=== PATIENT | male | born 1940 | race Caucasian/White ===

== ENCOUNTER → 2016-05-09 | Outpatient (CLI) | payer MEDICARE, OTHER ==
[~2016-05-09] MED LIST: AGM875T PO; ASCO-262 PO; ASP325T PO; CEFD300C PO; CEPH500C PO; CYCL10TA9 PO; CYCL5TAB PO; DIAZ10TA3 PO; DIAZ5TAB3 PO; GABA-488 PO; GBPN100C PO; GLIM4TAB PO; HYDR-2890 PO; HYDR-3812 PO; HYDR1TAB PO; INSASP10V SQ; INSU100I10 SQ; INSU100V6 SQ; LISI10TA PO; MELO-195 PO; NYST1000 PO; SIMV10TA3 PO; ZLP10T PO; ZOLP5TAB7 PO; [UNRECOGNIZED DRUG - OTHER]
--- OUTSIDE RECORDS SUMMARY | 2016-05-09 15:01 | XMS REPORT | Continuity of Care Document ---
Author Author [facility] Organization [facility] Address Unknown Phone Unavailable Care Team Providers Care Data Programmer Name Role Phone FABI CARRION MD PCP Insurance Providers Payer Name Policy Number Subscriber Name Relationship [employer] Medicare [id number] Issa Olivarez 18 Self / Same As Patient [employer] [id number] Issa Olivarez 18 Self / Same As Patient Advance Directives Directive Response Recorded Date/Time Advance Directives No 01/13/16 10:00am Health Care Power of Pin Puller No 01/13/16 10:00am Organ Donor No 01/13/16 10:00am Resuscitation Status Full Code 01/13/16 10:00am Problems Active Problems Medical Problem Onset Date Status Upper respiratory infection Unknown Acute Medications Current Home Medications Medication Dose Units Route Directions Days/Qty Instructions Start Date Meloxicam (Mobic) 15 Mg 15 Mg Oral Daily 07/06/12 Glimepiride 4 Mg 4 Mg Oral Daily 07/06/12 Lisinopril 10 Mg 10 Mg Oral Daily 08/27/12 Diazepam 10 Mg 10 Mg Oral Twice A Day 01/11/16 Gabapentin 300 Mg 300 Mg Oral Three Times A Day 01/11/16 Hydrocodone/Acetaminophen 1 Each 1 Each Oral Four Times Daily Simvastatin 10 Mg 10 Mg Oral Daily 01/11/16 Cyclobenzaprine Hcl 5 Mg 5 Mg Oral Three Times A Day 01/11/16 Zolpidem Tartrate 5 Mg 5 Mg Oral Bedtime 01/11/16 Insulin Glargine,Hum.rec.anlog 100 Unit/1 Ml 12 Unit Sub-Q Daily 04/15 Past Home Medications Medication Directions Ordered Status Diazepam (Valium) 5 Mg Tablet, 10 Mg Oral Twice A Day 09/16/10 Discontinued Zolpidem Tartrate 10 Mg Tab, 10 Mg Oral Bedtime 09/16/10 Discontinued Ascorbate Calcium 500 Mg Tablet, 500 Mg Oral Daily 09/16/10 Discontinued Aspirin 325 Mg Tab, 162.5 Mg Oral Daily 09/16/10 Discontinued Acetaminophen/Hydrocodone Bitart 1 Each Tablet, 1 - 2 Each Oral Q4hr Prn 23/03 Discontinued Cephalexin Monohydrate (Keflex) 500 Mg Capsule, 1 Each Oral Three Times A Day 09/20/10 Discontinued Gabapentin 100 Mg Cap, 200 Mg Oral Daily 07/06/12 Discontinued Insulin Human Lispro 100 U/Ml Vial, 14 Sub-Q Daily Ac 07/06/12 Discontinued Cyclobenzaprine Hcl (Flexeril) 10 Mg Tablet, 1 Each Oral Every 8HRS as needed 07/17/12 Discontinued Hydrocodone Bit/Acetaminophen 1 Each Tablet, 1 - 2 Each Oral Every 4HRS as needed 07/17/12 Discontinued Amoxicillin/Clavulanate Potassium 1 Tab Tablet, 1 Tab Oral Twice A Day Discontinued [Solester Pin Insulin] , 10/03/12 Discontinued Cefdinir 300 Mg Capsule, 300 Mg Oral Twice A Day 08/13/14 Discontinued Nystatin (Mycostatin Oral Suspension) 60 Ml Btl, 5 Ml Oral Three Times A Day 08/13/14 Discontinued Social History Social History Problem Response Recorded Date/Time Alcohol Use Denies Use 08/13/2014 2:27pm Recreational Drug Use No 08/13/2014 2:27pm Recent Foreign Travel No 08/18/2012 10:10am Recent Infectious Disease Exposure No 08/18/2012 10:10am Hospitalization with Isolation Denies 08/27/2012 5:13pm Sexually Transmitted Disease No 08/13/2014 2:27pm Smoking Status Former Smoker 01/13/2016 10:03am Type Used Cigarettes 01/13/2016 1:07pm Sexually Transmitted Disease No 08/13/2014 2:27pm Hospitalization with Isolation Denies 08/27/2012 5:13pm Hx Sexually Transmitted Disorders No 09/20/2010 8:06am Query Response Start Date Stop Date Smoking Status Former Smoker Hospital Discharge Instructions Patient Instructions Physician Instructions Follow Up 10 years Activity as tolerated High Fiber Diet 25g or more per day Avoid Alcohol, Caffeine, Spicy [place] and Acid foods. Drink 64 fluid oz or more of fluids per day. Symptoms to Report: Fever over 101 degree F, Nausea/Vomiting If any problems/questions: Contact your physician or go to Emergency Room Plan of Care Discharge Date 01/13/16 12:50pm Instructions/Education Provided COLONOSCOPY Prescriptions See Medication Section Functional Status No functional status results. Allergies, Adverse Reactions, Alerts No known allergies. Immunizations No immunization records. Vital Signs Acute Vital Signs Vital Response Date/Time Temperature (Fahrenheit) 97.0 degrees F (97.6 - 99.5) 01/13/2016 1:06pm Temperature (Calculated Celsius) 36.09137 degrees C (36.4 - 37.5) 01/13/2016 1:06pm Temperature Source Tympanic 01/13/2016 1:06pm Pulse Rate (adult) 69 bpm (60 - 90) 01/13/2016 1:06pm Respiratory Rate 20 bpm (12 - 24) 01/13/2016 1:06pm O2 Sat by Pulse Oximetry 97 % (88 - 100) 01/13/2016 1:06pm Blood Pressure 173/91 mm Hg 01/13/2016 1:06pm Pain Numeric Pain Scale 0-No Pain 01/13/2016 1:06pm Pain Intensity 0 01/13/2016 12:40pm Height (Feet) 6 feet 01/13/2016 10:08am Height (Inches) 0.00 inches 01/13/2016 10:08am Height (Calculated Centimeters) 182.314462 cm 01/13/2016 10:08am Weight (Pounds) 195 pounds 01/13/2016 10:08am Weight (Ounces) 0.0 oz 01/13/2016 10:08am Weight (Calculated Grams) 23925.51 gm 01/13/2016 10:08am Weight (Calculated Kilograms) 88.750385 kilograms 01/13/2016 10:08am Calculated BMI 26.5 01/13/2016 10:08am Results No known relevant diagnostic tests, laboratory data and/or discharge summary. Procedures Procedure Status Date Provider(s) Diagnostic colonoscopy Completed 01/13/16 DEVONTE CONTRERAS MD Encounters Encounter Location Arrival/Admit Date Discharge/Depart Date Attending Provider Departed [facility] 01/13/16 9:33am 12:50pm DEVONTE CONTRERAS MD Departed Clinic [facility] 01/11/16 6:05am 01/11/16 4: 16pm DEVONTE CONTRERAS MD Registered Clinic [facility] 12/22/15 3:50pm NA BRAXTON MD
[2016-05-09 15:39] LABS: MEAN PLATELET VOLUME 9.9 FL (7.4-10.4); RED BLOOD COUNT 5.09 10^6/uL (4.35-5.85); RED CELL DISTRIBUTION WIDTH 13.2 % (10.0-14.5); WHITE BLOOD COUNT 4.5 10^3/uL (4.3-11.0)
[2016-05-09 15:42] LABS: BILIRUBIN,URINE NEGATIVE (NEGATIVE); KETONES,URINE NEGATIVE (NEGATIVE); LEUKOCYTE ESTERASE ,URINE NEGATIVE (NEGATIVE); NITRITE,URINE NEGATIVE (NEGATIVE); PH,URINE 5 (5-9); PROTEIN,URINE 1+ (NEGATIVE); UROBILINOGEN,URINE NORMAL (NORMAL)
[2016-05-09 15:48] LABS: SQUAMOUS EPITHELIAL CELL,UR RARE /HPF
[2016-05-09 16:02] LABS: ALBUMIN 4.2 G/DL (3.2-4.5); BILIRUBIN,TOTAL 0.6 MG/DL (0.1-1.0); CALCIUM 9.4 MG/DL (8.5-10.1); CREATININE SERUM 1.3 MG/DL (0.60-1.30); POTASSIUM 5.2 MMOL/L (3.6-5.0); TOTAL PROTEIN 6.9 G/DL (6.4-8.2)
--- NOTE | 2016-05-09 16:16 | Diagnostic Imaging Report ---
INDICATION: Carotid artery stenosis. This is a preoperative evaluation. PA and lateral views of the chest are obtained with comparison made to study of 08/13/2014. FINDINGS: Heart size and pulmonary vascularity are within normal limits, and the lungs are clear, bilaterally. IMPRESSION: Unremarkable chest. Dictated by: Dictated on workstation # [id number]
== END ==
LOC: RAD 14:55
PROVIDERS: ATTEND Thoracic Surgery (Cardiothoracic Vascular Surgery)
DX: Z01.810 Encounter for preprocedural cardiovascular examination (principal); Z01.811 Encounter for preprocedural respiratory examination; Z01.812 Encounter for preprocedural laboratory examination; I65.23 Occlusion and stenosis of bilateral carotid arteries
CPT/HCPCS: 36415; 71020; 80053; 81000; 85027; 93005

== ENCOUNTER → 2016-06-07 | Outpatient (CLI) | payer MEDICARE, OTHER ==
--- OUTSIDE RECORDS SUMMARY | 2016-06-07 14:24 | XMS REPORT | Continuity of Care Document ---
Author Author [facility] Organization [facility] Address Unknown Phone Unavailable Care Team Providers Care Industrial Education Teacher Name Role Phone FABI CARRION MD PCP Insurance Providers Payer Name Policy Number Subscriber Name Relationship [employer] Medicare [id number] Issa Olivarez 20 Self / Same As Patient [employer] [id number] Issa Olivarez 20 Self / Same As Patient Advance Directives Directive Response Recorded Date/Time Advance Directives No 01/13/16 10:00am Health Care Power of Program Paraprofessional No 01/13/16 10:00am Organ Donor No 01/13/16 [...] more per day Avoid Alcohol, Caffeine, Spicy [place] and Acid foods. Drink 64 fluid oz [...] - 99.5) 01/13/2016 1:06pm Temperature (Calculated Celsius) 36.16978 degrees C (36.4 - 37.5) 01/13/2016 1:06pm [...] 0.00 inches 01/13/2016 10:08am Height (Calculated Centimeters) 182.042703 cm 01/13/2016 10:08am Weight (Pounds) 195 pounds 01/13/2016 10:08am Weight (Ounces) 0.0 oz 01/13/2016 10:08am Weight (Calculated Grams) 85311.51 gm 01/13/2016 10:08am Weight (Calculated Kilograms) 88.642344 kilograms 01/13/2016 10:08am Calculated BMI 26.5 01/13/2016 10:08am Results No known relevant diagnostic tests, laboratory data and/or discharge summary. Procedures Procedure Status Date Provider(s) Diagnostic colonoscopy Completed 01/13/16 DEVONTE CONTRERAS MD Encounters Encounter Location Arrival/Admit Date Discharge/Depart Date Attending Provider Departed [facility] 01/13/16 9:33am 12:50pm DEVONTE CONTRERAS MD Departed Clinic [facility] 01/11/16 6:05am 01/11/16 4: 16pm DEVONTE CONTRERAS MD Registered Clinic [facility] 12/22/15 3:50pm NA BRAXTON MD
[2016-06-07 14:51] LABS: MEAN PLATELET VOLUME 9.7 FL (7.4-10.4); RED BLOOD COUNT 5.12 10^6/uL (4.35-5.85); RED CELL DISTRIBUTION WIDTH 14.1 % (10.0-14.5); WHITE BLOOD COUNT 5.8 10^3/uL (4.3-11.0)
--- NOTE | 2016-06-07 14:53 | Diagnostic Imaging Report ---
EXAMINATION: PA and lateral views of the chest. INDICATION: Preoperative evaluation. Carotid stenosis. FINDINGS: The lungs are clear but slightly hyperinflated. Densities projecting over the lung bases slightly more prominent on the left side are probably the nipple shadows and are not seen on the lateral view. The heart size is normal. There is no effusion or pneumothorax. The mediastinum and moisés appear unremarkable. IMPRESSION: Mildly hyperinflated clear lungs. Dictated by: Dictated on workstation # [id number]
[2016-06-07 15:00] LABS: BILIRUBIN,URINE NEGATIVE (NEGATIVE); KETONES,URINE NEGATIVE (NEGATIVE); LEUKOCYTE ESTERASE ,URINE NEGATIVE (NEGATIVE); NITRITE,URINE NEGATIVE (NEGATIVE); PH,URINE 5 (5-9); PROTEIN,URINE 1+ (NEGATIVE); UROBILINOGEN,URINE NORMAL (NORMAL)
[2016-06-07 15:15] LABS: ALBUMIN 4.6 G/DL (3.2-4.5); BILIRUBIN,TOTAL 0.6 MG/DL (0.1-1.0); CALCIUM 9.4 MG/DL (8.5-10.1); CREATININE SERUM 1.25 MG/DL (0.60-1.30); TOTAL PROTEIN 7.2 G/DL (6.4-8.2)
== END ==
LOC: CARD 14:20
PROVIDERS: ATTEND Thoracic Surgery (Cardiothoracic Vascular Surgery)
DX: Z01.818 Encounter for other preprocedural examination (principal); I65.23 Occlusion and stenosis of bilateral carotid arteries
CPT/HCPCS: 36415; 71020; 80053; 81000; 85027; 93005

== ENCOUNTER → 2017-01-04 | Outpatient (CLI) | payer MEDICARE, OTHER ==
--- NOTE | 2017-01-04 13:54 | Diagnostic Imaging Report ---
PROCEDURE: US Carotid Duplex Bilateral. TECHNIQUE: Multiple real-time grayscale images were obtained over the carotid arteries in various projections bilaterally. Additional duplex Doppler and color Doppler images were also obtained. INDICATION: Left carotid endarterectomy. FINDINGS: The previous carotid Doppler exam of 03/17/2016 noted atherosclerotic plaque involving both carotid systems and indicated an underlying severe stenosis of the proximal left internal carotid artery. The stenosis was estimated to be in the 80-90% range. There is also a 40-59% stenosis at the origin of the internal carotid artery on the right. In the interval since the prior exam, the patient has undergone a left carotid endarterectomy. The ICA/CCA ratio on the left has decreased from 10.2 on the prior exam to 2.7 on this study. The atherosclerotic changes involving the right carotid system do not appear to have progressed. There is still no hemodynamically significant stenosis identified. Both vertebral arteries were noted, and there was antegrade flow bilaterally. IMPRESSION: 1. In the interval since the prior exam, the patient has undergone a left carotid endarterectomy. There is no evidence for a hemodynamically significant recurrent stenosis of the proximal internal carotid artery on the left. 2. The atherosclerotic disease involving the right carotid system has not progressed. There is no evidence for a hemodynamically significant stenosis of the right common or internal carotid arteries. 3. There is antegrade flow in the vertebral arteries bilaterally. Dictated by: Dictated on workstation # [id number]
== END ==
LOC: RAD 11:38
PROVIDERS: ATTEND Nurse Practitioner
DX: I65.23 Occlusion and stenosis of bilateral carotid arteries (principal); Z98.890 Other specified postprocedural states
CPT/HCPCS: 93880

== ENCOUNTER → 2017-03-17 | Outpatient (CLI) | payer MEDICARE, OTHER ==
[~2017-03-17] MED LIST changes: +CATHETER FLUSH 10 ML SYR IV PRN; +IOHEXOL 350 MG/ML 100 ML (OMNIPAQUE 350) VIAL IV ONE; +NS 100 ML (IVPB) BAG IV ONE
--- NOTE | 2017-03-17 16:47 | Diagnostic Imaging Report ---
INDICATION: Abdominal mass. CT of the abdomen and pelvis obtained with IV contrast bolus. No prior study is available for comparison. FINDINGS: The visualized portions of the lung bases are clear. There were no pleural fluid collections. There is no free intraperitoneal air. The patient has had previous lumbar fusion at L3-L4 both anteriorly and posteriorly. The liver shows mild low-density change compatible with fatty infiltration. There is a focal hypodense area near the falciform ligament which may be asymmetric fatty change. This measured about 1.3 cm. Small underlying mass lesion is not excluded. The spleen, adrenals, and pancreas are normal. The kidneys bilaterally appear unremarkable. There is no retroperitoneal mass or adenopathy. There is no ascites or abnormal fluid collection. Prostate gland is mildly enlarged. There is prominent stool throughout the colon, especially in the cecum. There is no overt mesenteric mass or omental mass. There is no abdominal wall hernia. IMPRESSION: 1. Mild fatty change of the liver. There is a focal hypodense area in the left lobe of the liver just to the right of the falciform ligament, which may represent asymmetric fatty change or a small lesion. Consider followup as clinically warranted either with followup CT or MRI. 2. There is prominent stool throughout the colon. There are postop changes in the lumbar spine. The prostate gland is mildly enlarged. There is no overt mass lesion identified. Dictated by: Dictated on workstation # [id number]
== END ==
LOC: RAD 13:57
PROVIDERS: ATTEND Internal Medicine
DX: K76.9 Liver disease, unspecified (principal)
CPT/HCPCS: 74177

== ENCOUNTER 2017-04-27 05:41 | Outpatient (CLI) | payer MEDICARE, OTHER ==
[~2017-04-27] VITALS: Ht 182.9 cm; Wt 89.8 kg
[~2017-04-27 05:41] MED LIST changes: +ACHD5005 PO; -CATHETER FLUSH 10 ML SYR IV PRN; -HYDR-3812 PO; -IOHEXOL 350 MG/ML 100 ML (OMNIPAQUE 350) VIAL IV ONE; -NS 100 ML (IVPB) BAG IV ONE
[2017-04-27] MEDS ORDERED: INSU100I10 SQ (12:16)
[2017-04-27] MEDS ORDERED: LISI10TA2 PO (12:16)
[2017-04-27] MEDS ORDERED: SIMV20TA3 PO (12:16)
[2017-04-27] MEDS ORDERED: GLIM4TAB PO (12:16)
[2017-04-27] MEDS ORDERED: ASPI-586 PO (12:19)
== END 2017-04-27 12:26 ==
LOC: PREOP 05:41
PROVIDERS: ATTEND Surgery
DX: Z01.818 Encounter for other preprocedural examination (principal); K43.9 Ventral hernia without obstruction or gangrene

== ENCOUNTER 2017-05-04 06:41 | Day surgery (SDC) | payer MEDICARE, OTHER ==
[~2017-05-04] VITALS: Ht 182.9 cm; Wt 89.8 kg
[~2017-05-04 06:41] MED LIST changes: +ASPI-586 PO; +LISI10TA2 PO; +SIMV20TA3 PO
[2017-05-04] MEDS ORDERED: BUP/EPI 0.5% 1:200,000 (MARCAINE) 10ML VIAL IJ ONE (07:21)
[2017-05-04 07:26] LABS: BASOPHILS # (AUTO) 0.1 10^3/uL (0.0-0.1); BASOPHILS % (AUTO) 1 % (0-10); EOSINOPHILS # (AUTO) 0.4 10^3/uL (0.0-0.3); EOSINOPHILS % (AUTO) 7 % (0-10); HEMATOCRIT 43 % (40-54); HEMOGLOBIN 14.8 G/DL (13.3-17.7); LYMPHOCYTES # (AUTO) 1.5 X 10^3 (1.0-4.0); LYMPHOCYTES % (AUTO) 30 % (12-44); MEAN CORPUSCULAR HEMOGLOBIN 31 PG (25-34); MEAN CORPUSCULAR HGB CONC 34 G/DL (32-36); MEAN CORPUSCULAR VOLUME 92 FL (80-99); MEAN PLATELET VOLUME 9.8 FL (7.4-10.4); MONOCYTES # (AUTO) 0.5 X 10^3 (0.0-1.0); MONOCYTES % (AUTO) 10 % (0-12); NEUTROPHILS # (AUTO) 2.5 X 10^3 (1.8-7.8); NEUTROPHILS % (AUTO) 51 % (42-75); PLATELET COUNT 215 10^3/uL (130-400); RED BLOOD COUNT 4.72 10^6/uL (4.35-5.85); RED CELL DISTRIBUTION WIDTH 13.2 % (10.0-14.5); WHITE BLOOD COUNT 4.8 10^3/uL (4.3-11.0)
[2017-05-04] MEDS ORDERED: ceFAZolin 1 GM/NS 50 ML IVPB IV ONE ×2 (07:30)
[2017-05-04] MEDS: LACTATED RINGERS 1,000 ML IV PRN ×2 (07:30→11:02)
[2017-05-04] MEDS ORDERED: CATHETER FLUSH 10 ML SYR IV PRN (07:30)
--- NOTE | 2017-05-04 07:59 | Progress Note-Pre Operative ---
Pre-Operative Progress Note H&P Reviewed The H&P was reviewed, patient examined and no changes noted. Date Seen by Provider: May 04, 2017 Time Seen by Provider: 07:50 Date H&P Reviewed: May 04, 2017 Time H&P Reviewed: 07:55 Pre-Operative Diagnosis: Symptomatic Ventral abdominal hernia REINA HENRY APRN May 04, 2017 7:59 am
[2017-05-04] MEDS ORDERED: ACETAMINOPHEN 325 MG TABLET/CAPLET (TYLENOL) PO PRN (08:00)
[2017-05-04] MEDS ORDERED: morphine INJ 10 MG/ML 1ML (SYR OR VIAL) IVP PRN ×2 (08:00→11:15)
[2017-05-04] MEDS ORDERED: ONDANSETRON 4 MG/2 ML (SDV) Z0FRAN IVP PRN ×2 (08:00→11:15)
[2017-05-04] MEDS ORDERED: HYDROcodone/APAP 5 MG/325 MG (LORTAB) TAB PO ONE (08:00)
[2017-05-04] MEDS ORDERED: fentaNYL INJECTION 100 MCG/2 ML AMP ONE (08:00)
[2017-05-04 08:13] VITALS: BP 138/71
[2017-05-04] MEDS ORDERED: ceFAZolin INJECTION 1,000 MG in NS (IVPB) 50 ML IV ONE (08:15)
[2017-05-04] MEDS ORDERED: LIDOCAINE PF 2% 5 ML (XYLOCAINE) VIAL ONE (10:51)
[2017-05-04] MEDS ORDERED: proPOfol 200 MG/20 ML (DIPRIVAN) VIAL IV ONE (10:51)
[2017-05-04] MEDS ORDERED: SEVOFLURANE (ULTANE) 15 ML INHAL SOLN ONE (10:51)
[2017-05-04] MEDS ORDERED: ONDANSETRON 4 MG/2 ML (SDV) Z0FRAN ONE (10:51)
[2017-05-04] MEDS ORDERED: ROCURONIUM 50 MG/5 ML (ZEMURON) VIAL IV ONE (10:59)
--- NOTE | 2017-05-04 11:01 | Progress Note-Post Operative ---
Post-Operative Progess Note Surgeon (s)/Belt Cleaner (s) Surgeon DEVONTE CONTRERAS MD Belt Cleaner: vijay forrest WELDER FITTER APPRENTICE Pre-Operative Diagnosis Symptomatic Ventral Abdominal Hernia Post-Operative Diagnosis same (left spigelian) Procedure & Operative Findings Date of Procedure 05/04/17 Procedure Performed/Findings open spigelian hernia repair with mesh. Anesthesia Type GET Estimated Blood Loss Estimated blood loss (mL): minimal Specimens/Packing Specimens Removed none DEVONTE CONTRERAS MD May 04, 2017 11:01 am
--- NOTE | 2017-05-04 11:02 | Discharge Inst-Surgical ---
D/C Lap Instructions-DIANE Follow Up Appt in 2 weeks Activity as tolerated No driving for 24 hours No driving while on pain medications Incentive Spirometry use every 2 hours while awake Regular Diet Symptoms to Report: Fever over 101 degree F, Nausea/Vomiting Infection Signs and Symptoms to report: Increased redness, Foul odor of wound, Increased drainage Bathing instructions: May shower Operative Area Clean/Dry; Keep incision clean/dry If any problems/questions: Contact your physician or go to Emergency Room DEVONTE CONTRERAS MD May 04, 2017 11:02 am
[2017-05-04] MEDS ORDERED: fentaNYL INJECTION 100 MCG/2 ML AMP IVP PRN (11:15)
[2017-05-04] MEDS ORDERED: HYDROmorphone (DILAUDID) 2 MG/ML VIAL IVP PRN (11:15)
[2017-05-04] MEDS ORDERED: HYDROmorphone (DILAUDID) 2 MG/ML VIAL ONE (11:16)
[2017-05-04 12:00] VITALS: BP 150/66
[2017-05-04 12:30] VITALS: BP 147/66
[2017-05-04 13:00] VITALS: BP 141/69
[2017-05-04] MEDS ORDERED: HYDROcodone/APAP 5 MG/325 MG (LORTAB) TAB ONE ×3 (14:04→14:08)
[2017-05-04 14:15] VITALS: BP 141/69
--- NOTE | 2017-05-04 14:24 | OPERATIVE REPORT ---
DATE OF SERVICE: 05/04/2017 ATTENDING PRIMARY CARE PHYSICIAN: Efren Morales M.D. PREOPERATIVE DIAGNOSIS: Symptomatic reducible ventral abdominal hernia. POSTOPERATIVE DIAGNOSIS: Symptomatic reducible ventral abdominal hernia with the findings of a reducible left spigelian hernia. PROCEDURE: Open ventral abdominal hernia repair with mesh. SURGEON: Devonte Contreras M.D. TRADER FIXED INCOME: Nestor Mccracken APRN. ANESTHESIA: General endotracheal. FINDINGS: Left linea semilunaris hernia deep to the external oblique consistent with a spigelian hernia. DISPOSITION: The patient tolerated the procedure well. INDICATIONS: The patient is a 76-year-old male who reports feeling a palpable bulge in the left lateral abdomen several months ago. He reports that this was initially mild; however, he noticed the lesion had grown larger in size and become significantly more painful, especially upon exertion. Upon examination, he was found to have a reducible hernia which was at the left lateral abdomen and not within the inguinal region. He has had previous surgeries which encompassed a laparoscopic cholecystectomy as well as open appendectomy through a McBurney's point incision. He is otherwise eating well and having normal bowel movements. DESCRIPTION OF PROCEDURE: The patient was brought to the operating room, laid supine on the table. After adequate IV pain and sedating medications and general endotracheal intubation, the abdomen was prepped and draped in standard surgical fashion. A 0.5% Marcaine with epinephrine was then used to anesthetize the overlying skin to the palpable hernia. A transverse skin incision was then made using a 15 blade. The external oblique was intact and opened transversely using electrocautery. The hernia sac was identified, which was at the linea semilunaris with the rectus abdominis medially and aponeurosis of the internal oblique laterally. This was more consistent with a spigelian hernia. The spigelian hernia was then completely dissected out using blunt dissection and opened. We then proceeded with mesh repair of the hernia defect using a coated polypropylene mesh which was 8 cm in diameter. This was placed into the defect and sutured to the internal oblique as well as the external oblique without any tension using 0 Prolene interrupted sutures. We were able to free up enough external oblique to cover the mesh with 0 Prolene running suture. Neil fascia was then reapproximated using 3-0 Vicryl interrupted sutures. Skin was closed using 4-0 Monocryl running subcuticular suture. The wound was then cleaned and covered with Dermabond. The patient tolerated the procedure well. We will start IV and oral pain medication as well as a clear liquid diet. Once he is tolerating clears and has good pain control with oral pain medications and ambulating well, we will discharge him home. He will be instructed to do no heavy lifting or exertion for the next 2 weeks and then increase activity as tolerated until six weeks total from the surgery date. Job ID: [id number] DocumentID: [id number] Dictated Date: 05/04/2017 11:08:42 Deputy Brand Inspector Date: 05/04/2017 14:23:50 Dictated By: DEVONTE CONTRERAS MD
--- OUTSIDE RECORDS SUMMARY | 2017-05-05 08:42 | XMS REPORT | Continuity of Care Document ---
Author Author [facility] Organization [facility] Address Unknown Phone Unavailable Allergies Active Description Code Type Severity Reaction Onset Reported/Identified Relationship to Patient Clinical Status Yes No Known Drug Allergies [id number] Drug Allergy Unknown N/A 08/18/2012 Medications There is no data. Problems Date Dx Coded Attending Type Code Diagnosis Diagnosed By 09/20/2010 Ot 355.6 PLANTAR NERVE LESION 09/20/2010 Ot 715.97 OSTEOARTHROS NOS-ANKLE 09/20/2010 Ot 727.1 BUNION 09/20/2010 Ot 733.99 BONE CARTILAGE DIS NEC 09/20/2010 Ot 735.0 HALLUX VALGUS 09/20/2010 Ot 735.8 ACQ DEFORMITY OF TOE NEC 09/20/2010 Ot V57.1 PHYSICAL THERAPY NEC 07/17/2012 Ot 250.00 DIAB CONSTANTINE WO COMPL, TYPE II OR UNSPEC TY 07/17/2012 Ot 300.00 ANXIETY STATE NOS 07/17/2012 Ot 311 DEPRESSIVE DISORDER NEC 07/17/2012 Ot 724.02 SPINAL STENOSIS, LUMBAR REG, W/OUT NEURO 07/17/2012 Ot 738.4 ACQ SPONDYLOLISTHESIS 07/17/2012 Ot V15.82 HISTORY OF TOBACCO USE 08/27/2012 SOBIA WHEELER MD Ot 038.11 METHICILLIN SUSCEPTIBLE STAPHYLOCOCCUS A 08/27/2012 SOBIA WHEELER MD Ot 250.02 DIAB CONSTANTINE WO COMPL, TYPE II OR UNSPEC TY 08/27/2012 SOBIA WHEELER MD Ot 276.51 DEHYDRATION 08/27/2012 SOBIA WHEELER MD Ot 311 DEPRESSIVE DISORDER NEC 08/27/2012 SOBIA WHEELER MD Ot 585.3 CHRONIC KIDNEY DISEASE, STAGE III (MODER 08/27/2012 SOBIA WHEELER MD Ot 682.2 CELLULITIS OF TRUNK 08/27/2012 SOBIA WHEELER MD Ot 715.90 OSTEOARTHROS NOS-UNSPEC 08/27/2012 SOBIA WHEELER MD Ot 728.87 MUSCLE WEAKNESS (GENERALIZED) 08/27/2012 SOBIA WHEELER MD Ot 995.91 SEPSIS 08/27/2012 SOBIA WHEELER MD Ot 998.12 HEMATOMA COMPLIC A PROC 08/27/2012 SOBIA WHEELER MD Ot 998.32 DISRUPTION OF EXTERNAL OPERATION (SURGIC 08/27/2012 SOBIA WHEELER MD Ot 998.59 OTH POSTOPER INFECTION 08/27/2012 SOBIA WHEELER MD Ot V12.09 PERSONAL HISTORY OTH SPEC INFECT RANDALL 08/27/2012 SOBIA WHEELER MD Ot V45.89 POSTSURGICAL STATES NEC 08/27/2012 SOBIA WHEELER MD Ot V58.67 LONG-TERM (CURRENT) USE OF INSULIN 10/16/2012 SOBIA WHEELER MD Ot 998.59 OTH POSTOPER INFECTION 08/13/2014 Ot 715.31 08/13/2014 Ot 355.6 08/13/2014 Ot 727.1 08/13/2014 Ot 735.2 08/13/2014 Ot V72.83 08/13/2014 Ot V74.8 08/13/2014 Ot 724.02 08/13/2014 Ot 724.02 08/13/2014 Ot V72.63 08/13/2014 Ot V74.8 08/13/2014 Ot 682.9 08/13/2014 BENNY TOLBERT MD Ot 465.9 ACUTE URI NOS 08/13/2014 BENNY TOLBERT MD Ot 786.2 COUGH 08/15/2014 Ot 715.31 08/15/2014 Ot 355.6 08/15/2014 Ot 727.1 08/15/2014 Ot 735.2 08/15/2014 Ot V72.83 08/15/2014 Ot V74.8 08/15/2014 Ot 724.02 08/15/2014 Ot 724.02 08/15/2014 Ot V72.63 08/15/2014 Ot V74.8 08/15/2014 Ot 682.9 08/15/2014 BENNY TOLBERT MD Ot 465.9 08/15/2014 BENNY TOLBERT MD Ot 786.2 08/03/2015 Ot 715.31 08/03/2015 Ot 355.6 08/03/2015 Ot 727.1 08/03/2015 Ot 735.2 08/03/2015 Ot V72.83 08/03/2015 Ot V74.8 08/03/2015 Ot 724.02 08/03/2015 Ot 724.02 08/03/2015 Ot V72.63 08/03/2015 Ot V74.8 08/03/2015 Ot 682.9 2015 VIRGEN WAN MD Ot M54.5 08/06/2015 VIRGEN WAN MD Ot M54.5 08/06/2015 VIRGEN WAN MD Ot M54.5 08/07/2015 VIRGEN WAN MD Ot M54.5 08/24/2015 VIGREN WAN MD Ot M54.5 LOW BACK PAIN 09/17/2015 VIRGEN WAN MD Ot M48.06 SPINAL STENOSIS, LUMBAR REGION 09/17/2015 VIRGEN WAN MD Ot M51.36 OTHER INTERVERTEBRAL DISC DEGENERATION, 09/17/2015 VIRGEN WAN MD Ot M48.06 SPINAL STENOSIS, LUMBAR REGION 09/17/2015 VIRGEN WAN MD Ot M51.36 OTHER INTERVERTEBRAL DISC DEGENERATION, 10/08/2015 Ot 715.31 LOC OSTEOARTH NOS-SHLDER 10/08/2015 Ot 355.6 PLANTAR NERVE LESION 10/08/2015 Ot 727.1 BUNION 10/08/2015 Ot 735.2 HALLUX RIGIDUS 10/08/2015 Ot V72.83 EXAM PRE- OPERATIVE NEC 10/08/2015 Ot V74.8 SCREEN- BACTERIAL DIS NEC 10/08/2015 Ot 724.02 SPINAL STENOSIS, LUMBAR REG, W/OUT NEURO 10/08/2015 Ot 724.02 SPINAL STENOSIS, LUMBAR REG, W/OUT NEURO 10/08/2015 Ot V72.63 PRE- PROCEDURAL LABORATORY EXAMINATION 10/08/2015 Ot V74.8 SCREEN- BACTERIAL DIS NEC 10/08/2015 Ot 682.9 CELLULITIS NOS 10/08/2015 VIREGN WAN MD Ot M54.5 LOW BACK PAIN 10/08/2015 VIRGEN WAN MD Ot M48.06 SPINAL STENOSIS, LUMBAR REGION 10/08/2015 VIRGEN WAN MD Ot M51.36 OTHER INTERVERTEBRAL DISC DEGENERATION, 10/09/2015 VIRGEN WAN MD Ot M48.06 SPINAL STENOSIS, LUMBAR REGION 10/09/2015 VIRGEN WAN MD Ot M51.36 OTHER INTERVERTEBRAL DISC DEGENERATION, 10/09/2015 RUTHANN (ALEXIA), MILENA Dean Ot M79.609 PAIN IN UNSPECIFIED LIMB 10/14/2015 RUTHANN (ALEXIA), MILENA Dean Ot M54.5 LOW BACK PAIN 10/14/2015 RUTHANN (ALEXIA), MILENA Dean Ot M79.609 PAIN IN UNSPECIFIED LIMB 11/04/2015 RUTHANN (ALEXIA), MILENA Dean Ot M54.5 LOW BACK PAIN 11/04/2015 RUTHANN (ALEXIA), MILENA Dean Ot M79.609 PAIN IN UNSPECIFIED LIMB 12/22/2015 Ot 715.31 LOC OSTEOARTH NOS-SHLDER 12/22/2015 Ot 355.6 PLANTAR NERVE LESION 12/22/2015 Ot 727.1 BUNION 12/22/2015 Ot 735.2 HALLUX RIGIDUS 12/22/2015 Ot V72.83 EXAM PRE- OPERATIVE NEC 12/22/2015 Ot V74.8 SCREEN- BACTERIAL DIS NEC 12/22/2015 Ot 724.02 SPINAL STENOSIS, LUMBAR REG, W/OUT NEURO 12/22/2015 Ot 724.02 SPINAL STENOSIS, LUMBAR REG, W/OUT NEURO 12/22/2015 Ot V72.63 PRE- PROCEDURAL LABORATORY EXAMINATION 12/22/2015 Ot V74.8 SCREEN- BACTERIAL DIS NEC 12/22/2015 Ot 682.9 CELLULITIS NOS 12/22/2015 VIRGEN WAN MD Ot M54.5 LOW BACK PAIN 12/22/2015 VIRGEN WAN MD Ot M48.06 SPINAL STENOSIS, LUMBAR REGION 12/22/2015 VIRGEN WAN MD Ot M51.36 OTHER INTERVERTEBRAL DISC DEGENERATION, 12/22/2015 RUTHANN (ALEXIA), MILENA Dean Ot M54.5 LOW BACK PAIN 12/22/2015 RUTHANN (ALEXIA), MILENA Dean Ot M79.609 PAIN IN UNSPECIFIED LIMB 12/23/2015 NA BRAXTON MD, V Ot M48.06 SPINAL STENOSIS, LUMBAR REGION 12/23/2015 NA BRAXTON MD, V Ot M54.5 LOW BACK PAIN 12/30/2015 Ot 715.31 LOC OSTEOARTH NOS-SHLDER 12/30/2015 Ot 355.6 PLANTAR NERVE LESION 12/30/2015 Ot 727.1 BUNION 12/30/2015 Ot 735.2 HALLUX RIGIDUS 12/30/2015 Ot V72.83 EXAM PRE- OPERATIVE NEC 12/30/2015 Ot V74.8 SCREEN- BACTERIAL DIS NEC 12/30/2015 Ot 724.02 SPINAL STENOSIS, LUMBAR REG, W/OUT NEURO 12/30/2015 Ot 724.02 SPINAL STENOSIS, LUMBAR REG, W/OUT NEURO 12/30/2015 Ot V72.63 PRE- PROCEDURAL LABORATORY EXAMINATION 12/30/2015 Ot V74.8 SCREEN- BACTERIAL DIS NEC 12/30/2015 Ot 682.9 CELLULITIS NOS 12/30/2015 SOCO MARIE, VIRGEN Spear Ot M54.5 LOW BACK PAIN 12/30/2015 SOCO MARIE, VIRGEN Spear Ot M48.06 SPINAL STENOSIS, LUMBAR REGION 12/30/2015 SOCO MARIE, VIRGEN Spear Ot M51.36 OTHER INTERVERTEBRAL DISC DEGENERATION, 12/30/2015 RUTHANN (ALEXIA)MILENA Ot M54.5 LOW BACK PAIN 12/30/2015 RUTHANN (ALEXIA)MILENA Ot M79.609 PAIN IN UNSPECIFIED LIMB 12/30/2015 IRAIS MARIE, NA Ocasio Ot M48.06 SPINAL STENOSIS, LUMBAR REGION 12/30/2015 NA BRAXTON MD, V Ot M54.5 LOW BACK PAIN 01/11/2016 DEVONTE CONTRERAS MD Ot Z01.818 ENCOUNTER FOR OTHER PREPROCEDURAL EXAMIN 01/11/2016 DEVONTE CONTRERAS MD Ot Z12.11 ENCOUNTER FOR SCREENING FOR MALIGNANT NE 01/12/2016 DEVONTE CONTRERAS MD Ot Z01.818 ENCOUNTER FOR OTHER PREPROCEDURAL EXAMIN 01/12/2016 DEVONTE CONTRERAS MD Ot Z12.11 ENCOUNTER FOR SCREENING FOR MALIGNANT NE 01/13/2016 DEVONTE CONTRERAS MD Ot K64.1 SECOND DEGREE HEMORRHOIDS 01/13/2016 DEVONTE CONTRERAS MD Ot Z12.11 ENCOUNTER FOR SCREENING FOR MALIGNANT NE 01/15/2016 NA BRAXTON MD, V Ot M48.06 SPINAL STENOSIS, LUMBAR REGION 01/15/2016 NA BRAXTON MD, V Ot M54.5 LOW BACK PAIN 03/18/2016 FABI CARRION MD Ot R09.89 [facility] SYMPTOMS AND SIGNS INVOLVING THE CIR 03/18/2016 FABI CARRION MD Ot I65.23 OCCLUSION AND STENOSIS OF BILATERAL CALLEJAS 03/21/2016 FABI CARRION MD Ot I65.23 OCCLUSION AND STENOSIS OF BILATERAL CALLEJAS 03/28/2016 ZOFIA ABARCA APRN Ot R07.81 PLEURODYNIA 04/08/2016 FABI CARRION MD Ot I65.23 OCCLUSION AND STENOSIS OF BILATERAL CALLEJAS 04/15/2016 ZOFIA ABARCA TEARER Ot R07.81 PLEURODYNIA 05/09/2016 Ot 724.02 SPINAL STENOSIS, LUMBAR REG, W/OUT NEURO 05/09/2016 Ot 724.02 SPINAL STENOSIS, LUMBAR REG, W/OUT NEURO 05/09/2016 Ot V72.63 PRE- PROCEDURAL LABORATORY EXAMINATION 05/09/2016 Ot V74.8 SCREEN- BACTERIAL DIS NEC 05/09/2016 Ot 682.9 CELLULITIS NOS 05/09/2016 SOCO MARIE, VIRGEN Spear Ot M54.5 LOW BACK PAIN 05/09/2016 VIRGEN WAN MD Ot M48.06 SPINAL STENOSIS, LUMBAR REGION 05/09/2016 VIRGEN WAN MD Ot M51.36 OTHER INTERVERTEBRAL DISC DEGENERATION, 05/09/2016 RUTHANN (ALEXIA)MILENA Ot M54.5 LOW BACK PAIN 05/09/2016 RUTHANN (ALEXIA)MILENA Ot M79.609 PAIN IN UNSPECIFIED LIMB 05/09/2016 IRAIS MARIE, NA Ocasio Ot M48.06 SPINAL STENOSIS, LUMBAR REGION 05/09/2016 NA BRAXTON MD, V Ot M54.5 LOW BACK PAIN 05/09/2016 FABI CARRION MD Ot I65.23 OCCLUSION AND STENOSIS OF BILATERAL CALLEJAS 05/09/2016 ZOFIA ABARCA APRN Ot R07.81 PLEURODYNIA 05/13/2016 MAYA ALVARADO MD Ot I65.23 OCCLUSION AND STENOSIS OF BILATERAL CALLEJAS 05/13/2016 MAYA ALVARADO MD Ot Z01.810 ENCOUNTER FOR PREPROCEDURAL CARDIOVASCUL 05/13/2016 MAYA ALVARADO MD Ot Z01.811 ENCOUNTER FOR PREPROCEDURAL RESPIRATORY 05/13/2016 MAYA ALVARADO MD Ot Z01.812 ENCOUNTER FOR PREPROCEDURAL LABORATORY E 06/01/2016 MAYA ALVARADO MD Ot I65.23 OCCLUSION AND STENOSIS OF BILATERAL CALLEJAS 06/01/2016 MAYA ALVARADO MD Ot Z01.810 ENCOUNTER FOR PREPROCEDURAL CARDIOVASCUL 06/01/2016 MAYA ALVARADO MD Ot Z01.811 ENCOUNTER FOR PREPROCEDURAL RESPIRATORY 06/01/2016 MAYA ALVARADO MD, Ot Z01.812 ENCOUNTER FOR PREPROCEDURAL LABORATORY E 06/07/2016 Ot 724.02 SPINAL STENOSIS, LUMBAR REG, W/OUT NEURO 06/07/2016 Ot 724.02 SPINAL STENOSIS, LUMBAR REG, W/OUT NEURO 06/07/2016 Ot V72.63 PRE- PROCEDURAL LABORATORY EXAMINATION 06/07/2016 Ot V74.8 SCREEN- BACTERIAL DIS NEC 06/07/2016 Ot 682.9 CELLULITIS NOS 06/07/2016 SOCO MARIE, VIRGEN Spear Ot M54.5 LOW BACK PAIN 06/07/2016 SOCO MARIE, VIRGEN Spear Ot M48.06 SPINAL STENOSIS, LUMBAR REGION 06/07/2016 SOCO MARIE, VIRGEN Spear Ot M51.36 OTHER INTERVERTEBRAL DISC DEGENERATION, 06/07/2016 RUTHANN (ALEXIA)MILENA Ot M54.5 LOW BACK PAIN 06/07/2016 RUTHANN (ALEXIA)MILENA Ot M79.609 PAIN IN UNSPECIFIED LIMB 06/07/2016 IRAIS MARIE, NA Ocasio Ot M48.06 SPINAL STENOSIS, LUMBAR REGION 06/07/2016 NA BRAXTON MD, V Ot M54.5 LOW BACK PAIN 06/07/2016 MURALI MARIE, FABI Hoyos Ot I65.23 OCCLUSION AND STENOSIS OF BILATERAL CALLEJAS 06/07/2016 ZOFIA ABARCA APRN Ot R07.81 PLEURODYNIA 06/07/2016 MAYA ALVARADO MD Ot I65.23 OCCLUSION AND STENOSIS OF BILATERAL CALLEJAS 06/07/2016 MAYA ALVARADO MD Ot Z01.810 ENCOUNTER FOR PREPROCEDURAL CARDIOVASCUL 06/07/2016 MAYA ALVARADO MD Ot Z01.811 ENCOUNTER FOR PREPROCEDURAL RESPIRATORY 06/07/2016 MAYA ALVARADO MD Ot Z01.812 ENCOUNTER FOR PREPROCEDURAL LABORATORY E 06/08/2016 MAYA ALVARADO MD Ot I65.23 OCCLUSION AND STENOSIS OF BILATERAL CALLEJAS 06/08/2016 MAYA ALVARADO MD Ot Z01.818 ENCOUNTER FOR OTHER PREPROCEDURAL EXAMIN 06/09/2016 MAYA ALVARADO MD, Ot I65.23 OCCLUSION AND STENOSIS OF BILATERAL [place]LE[place] 06/09/2016 MAYA ALVARADO MD Ot Z01.818 ENCOUNTER FOR OTHER PREPROCEDURAL EXAMIN 06/23/2016 MAYA ALVARADO MD, Ot I65.23 OCCLUSION AND STENOSIS OF BILATERAL CALLEJAS 06/23/2016 MAYA ALVARADO MD Ot Z01.810 ENCOUNTER FOR PREPROCEDURAL CARDIOVASCUL 06/23/2016 MAYA ALVARADO MD Ot Z01.811 ENCOUNTER FOR PREPROCEDURAL RESPIRATORY 06/23/2016 MAYA ALVARADO MD Ot Z01.812 ENCOUNTER FOR PREPROCEDURAL LABORATORY E 06/28/2016 MAYA ALVARADO MD Ot I65.23 OCCLUSION AND STENOSIS OF BILATERAL CALLEJAS 06/28/2016 MAYA ALVARADO MD Ot Z01.818 ENCOUNTER FOR OTHER PREPROCEDURAL EXAMIN 07/18/2016 MAYA ALVARADO MD, Ot I65.23 OCCLUSION AND STENOSIS OF BILATERAL CALLEJAS 07/18/2016 MAYA ALVARADO MD Ot Z01.818 ENCOUNTER FOR OTHER PREPROCEDURAL EXAMIN 01/05/2017 HUTCHINSONAIDEN CHERRY NUMERICAL TOOL PROGRAMMER Ot I65.23 OCCLUSION AND STENOSIS OF BILATERAL CALLEJAS 01/05/2017 AIDEN HUTCHINSON NUMERICAL TOOL PROGRAMMER Ot Z98.890 OTHER SPECIFIED POSTPROCEDURAL STATES 01/25/2017 AIDEN HUTCHINSON NUMERICAL TOOL PROGRAMMER Ot I65.23 OCCLUSION AND STENOSIS OF BILATERAL CALLEJAS 01/25/2017 AIDEN HUTCHINSON NUMERICAL TOOL PROGRAMMER Ot Z98.890 OTHER SPECIFIED POSTPROCEDURAL STATES 01/30/2017 AIDEN HUTCHINSON NUMERICAL TOOL PROGRAMMER Ot I65.23 OCCLUSION AND STENOSIS OF BILATERAL CALLEJAS 01/30/2017 AIDEN HUTCHINSON NUMERICAL TOOL PROGRAMMER Ot Z98.890 OTHER SPECIFIED POSTPROCEDURAL STATES 03/12/2017 JO-ANN MARIE, WILIAN Valentin Ot E11.9 TYPE 2 DIABETES MELLITUS WITHOUT COMPLIC 03/12/2017 WILIAN BUSCH MD Ot F32.9 MAJOR DEPRESSIVE DISORDER, SINGLE EPISOD 03/12/2017 WILIAN BUSCH MD, Ot F41.9 ANXIETY DISORDER, UNSPECIFIED 03/12/2017 WILIAN BUSCH MD, Ot M79.601 PAIN IN RIGHT ARM 03/12/2017 WILIAN BUSCH MD, Ot S46.201A UNSP INJURY OF MUSC/FASC/TEND PRT BICEPS 03/12/2017 WILIAN BUSCH MD Ot X58.XXXA EXPOSURE TO OTHER SPECIFIED FACTORS, INI 03/12/2017 WILIAN BUSCH MD, Ot 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 03/12/2017 WILIAN BUSCH MD, Ot Z87.2 PERSONAL HISTORY OF DISEASES OF THE SKIN 03/12/2017 WILIAN BUSCH MD, Ot Z87.442 PERSONAL HISTORY OF URINARY CALCULI 03/12/2017 WILIAN BUSCH MD, Ot Z87.828 PERSONAL HISTORY OF OTH (HEALED) PHYSICA 03/12/2017 WILIAN BUSCH MD, Ot Z87.891 PERSONAL HISTORY OF NICOTINE DEPENDENCE 03/16/2017 MAYA ALVARADO MD Ot I65.23 OCCLUSION AND STENOSIS OF BILATERAL CALLEJAS 03/16/2017 MAYA ALVARADO MD Ot Z01.818 ENCOUNTER FOR OTHER PREPROCEDURAL EXAMIN 03/16/2017 AIDEN HUTCHINSON Ot I65.23 OCCLUSION AND STENOSIS OF BILATERAL CALLEJAS 03/16/2017 AIDEN HUTCHINSON Ot Z98.890 OTHER SPECIFIED POSTPROCEDURAL STATES 03/16/2017 AIDEN HUTCHINSON Ot I65.23 OCCLUSION AND STENOSIS OF BILATERAL CALLEJAS 04/11/2017 MURALI MARIE, FABI Hoyos Ot K76.9 LIVER DISEASE, UNSPECIFIED Procedures Code Description Performed By Performed On 81.06 LUMBAR LUMBOSACRAL FUSION OF ANTERIOR 07/13/2012 81.08 LUMBAR LUMBOSACRAL FUSION OF ANTERIOR 07/13/2012 81.62 FUSION/REFUS OF 2-3 VERTEBRAE 07/13/2012 84.51 INSERTION OF INTERBODY SPINAL FUSION DEV 07/13/2012 Results Test Result Range Automated blood complete blood count (hemogram) panel - 05/09/16 15:34 Blood leukocytes automated count (number/volume) 4.5 10*3/uL 4.3-11.0 Blood erythrocytes automated count (number/volume) 5.09 10*6/uL 4.35-5.85 Venous blood hemoglobin measurement (mass/volume) 15.5 g/dL 13.3-17.7 Blood hematocrit (volume fraction) 45 % 40-54 Automated erythrocyte mean corpuscular volume 89 [foz_us] 80-99 Automated erythrocyte mean corpuscular hemoglobin (mass per erythrocyte) 31 pg 25-34 Automated erythrocyte mean corpuscular hemoglobin concentration measurement ( mass/volume) 34 g/dL 32-36 Automated erythrocyte distribution width ratio 13.2 % 10.0-14.5 Automated blood platelet count (count/volume) 199 10*3/uL 130-400 Automated blood platelet mean volume measurement 9.9 [foz_us] 7.4-10.4 Comprehensive metabolic panel - 05/09/16 15:34 Serum or plasma sodium measurement (moles/volume) 136 mmol/L 135-145 Serum or plasma potassium measurement (moles/volume) 5.2 mmol/L 3.6-5.0 Serum or plasma chloride measurement (moles/volume) 100 mmol/L 98-107 Carbon dioxide 27 mmol/L 21-32 Serum or plasma anion gap determination (moles/volume) 9 mmol/L 5-14 Serum or plasma urea nitrogen measurement (mass/volume) 20 mg/dL 7-18 Serum or plasma creatinine measurement (mass/volume) 1.30 mg/dL 0.60-1.30 Serum or plasma urea nitrogen/creatinine mass ratio 15 NRG Serum or plasma creatinine measurement with calculation of estimated glomerular filtration rate 54 NRG Serum or plasma glucose measurement (mass/volume) 359 mg/dL 70-105 Serum or plasma calcium measurement (mass/volume) 9.4 mg/dL 8.5-10.1 Serum or plasma total bilirubin measurement (mass/volume) 0.6 mg/dL 0.1-1.0 Serum or plasma alkaline phosphatase measurement (enzymatic activity/volume) 71 U/L 40-136 Serum or plasma aspartate aminotransferase measurement (enzymatic activity/ volume) 17 U/L 5-34 Serum or plasma alanine aminotransferase measurement (enzymatic activity/volume ) 23 U/L 0-55 Serum or plasma protein measurement (mass/volume) 6.9 g/dL 6.4-8.2 Serum or plasma albumin measurement (mass/volume) 4.2 g/dL 3.2-4.5 Complete urinalysis with reflex to culture - 05/09/16 15:38 Urine color determination YELLOW NRG Urine clarity determination CLEAR NRG Urine pH measurement by test strip 5 5-9 Specific gravity of urine by test strip 1.020 1.016- 1.022 Urine protein assay by test strip, semi-quantitative 1+ NEGATIVE Urine glucose detection by automated test strip 4+ NEGATIVE Erythrocytes detection in urine sediment by light microscopy NEGATIVE NEGATIVE Urine ketones detection by automated test strip NEGATIVE NEGATIVE Urine nitrite detection by test strip NEGATIVE NEGATIVE Urine total bilirubin detection by test strip NEGATIVE NEGATIVE Urine urobilinogen measurement by automated test strip (mass/volume) NORMAL NORMAL Urine leukocyte esterase detection by dipstick NEGATIVE NEGATIVE Automated urine sediment erythrocyte count by microscopy (number/high power field) NONE NRG Automated urine sediment leukocyte count by microscopy (number/high power field ) NONE NRG Bacteria detection in urine sediment by light microscopy NONE NRG Squamous epithelial cells detection in urine sediment by light microscopy RARE NRG Crystals detection in urine sediment by light microscopy NONE NRG Casts detection in urine sediment by light microscopy NONE NRG Mucus detection in urine sediment by light microscopy TRACE NRG Complete urinalysis with reflex to culture NO NRG Automated blood complete blood count (hemogram) panel - 06/07/16 14:44 Blood leukocytes automated count (number/volume) 5.8 10*3/uL 4.3-11.0 Blood erythrocytes automated count (number/volume) 5.12 10*6/uL 4.35-5.85 Venous blood hemoglobin measurement (mass/volume) 16.0 g/dL 13.3-17.7 Blood hematocrit (volume fraction) 46 % 40-54 Automated erythrocyte mean corpuscular volume 90 [foz_us] 80-99 Automated erythrocyte mean corpuscular hemoglobin (mass per erythrocyte) 31 pg 25-34 Automated erythrocyte mean corpuscular hemoglobin concentration measurement ( mass/volume) 35 g/dL 32-36 Automated erythrocyte distribution width ratio 14.1 % 10.0-14.5 Automated blood platelet count (count/volume) 186 10*3/uL 130-400 Automated blood platelet mean volume measurement 9.7 [foz_us] 7.4-10.4 Comprehensive metabolic panel - 06/07/16 14:44 Serum or plasma sodium measurement (moles/volume) 138 mmol/L 135-145 Serum or plasma potassium measurement (moles/volume) 4.0 mmol/L 3.6-5.0 Serum or plasma chloride measurement (moles/volume) 102 mmol/L 98-107 Carbon dioxide 25 mmol/L 21-32 Serum or plasma anion gap determination (moles/volume) 11 mmol/L 5-14 Serum or plasma urea nitrogen measurement (mass/volume) 19 mg/dL 7-18 Serum or plasma creatinine measurement (mass/volume) 1.25 mg/dL 0.60-1.30 Serum or plasma urea nitrogen/creatinine mass ratio 15 NRG Serum or plasma creatinine measurement with calculation of estimated glomerular filtration rate 57 NRG Serum or plasma glucose measurement (mass/volume) 196 mg/dL 70-105 Serum or plasma calcium measurement (mass/volume) 9.4 mg/dL 8.5-10.1 Serum or plasma total bilirubin measurement (mass/volume) 0.6 mg/dL 0.1-1.0 Serum or plasma alkaline phosphatase measurement (enzymatic activity/volume) 68 U/L 40-136 Serum or plasma aspartate aminotransferase measurement (enzymatic activity/ volume) 24 U/L 5-34 Serum or plasma alanine aminotransferase measurement (enzymatic activity/volume ) 30 U/L 0-55 Serum or plasma protein measurement (mass/volume) 7.2 g/dL 6.4-8.2 Serum or plasma albumin measurement (mass/volume) 4.6 g/dL 3.2-4.5 Complete urinalysis with reflex to culture - 06/07/16 14:50 Urine color determination YELLOW NRG Urine clarity determination SLIGHTLY CLOUDY NRG Urine pH measurement by test strip 5 5-9 Specific gravity of urine by test strip 1.025 1.016- 1.022 Urine protein assay by test strip, semi-quantitative 1+ NEGATIVE Urine glucose detection by automated test strip 3+ NEGATIVE Erythrocytes detection in urine sediment by light microscopy NEGATIVE NEGATIVE Urine ketones detection by automated test strip NEGATIVE NEGATIVE Urine nitrite detection by test strip NEGATIVE NEGATIVE Urine total bilirubin detection by test strip NEGATIVE NEGATIVE Urine urobilinogen measurement by automated test strip (mass/volume) NORMAL NORMAL Urine leukocyte esterase detection by dipstick NEGATIVE NEGATIVE Automated urine sediment erythrocyte count by microscopy (number/high power field) NONE NRG Automated urine sediment leukocyte count by microscopy (number/high power field ) NONE NRG Bacteria detection in urine sediment by light microscopy NEGATIVE NRG Squamous epithelial cells detection in urine sediment by light microscopy NONE NRG Crystals detection in urine sediment by light microscopy NONE NRG Casts detection in urine sediment by light microscopy NONE NRG Mucus detection in urine sediment by light microscopy SMALL NRG Complete urinalysis with reflex to culture NO NRG Complete blood count (CBC) with automated white blood cell (WBC) differential - 05/04/17 07:10 Blood leukocytes automated count (number/volume) 4.8 10*3/uL 4.3-11.0 Blood erythrocytes automated count (number/volume) 4.72 10*6/uL 4.35-5.85 Venous blood hemoglobin measurement (mass/volume) 14.8 g/dL 13.3-17.7 Blood hematocrit (volume fraction) 43 % 40-54 Automated erythrocyte mean corpuscular volume 92 [foz_us] 80-99 Automated erythrocyte mean corpuscular hemoglobin (mass per erythrocyte) 31 pg 25-34 Automated erythrocyte mean corpuscular hemoglobin concentration measurement ( mass/volume) 34 g/dL 32-36 Automated erythrocyte distribution width ratio 13.2 % 10.0-14.5 Automated blood platelet count (count/volume) 215 10*3/uL 130-400 Automated blood platelet mean volume measurement 9.8 [foz_us] 7.4-10.4 Automated blood neutrophils/100 leukocytes 51 % 42-75 Automated blood lymphocytes/100 leukocytes 30 % 12-44 Blood monocytes/100 leukocytes 10 % 0-12 Automated blood eosinophils/100 leukocytes 7 % 0-10 Automated blood basophils/100 leukocytes 1 % 0-10 Blood neutrophils automated count (number/volume) 2.5 10*3 1.8-7.8 Blood lymphocytes automated count (number/volume) 1.5 10*3 1.0-4.0 Blood monocytes automated count (number/volume) 0.5 10*3 0.0-1.0 Automated eosinophil count 0.4 10*3/uL 0.0-0.3 Automated blood basophil count (count/volume) 0.1 10*3/uL 0.0-0.1 Capillary blood glucose measurement by glucometer (mass/volume) - 05/04/17 07: 15 Capillary blood glucose measurement by glucometer (mass/volume) 102 mg/dL 70-110 Encounters ACCT No. Visit Date/Time Discharge Status Pt. Type Provider Facility Loc./Unit Complaint [id number] 03/17/2017 13:57:00 03/17/2017 23:59:59 CLS Outpatient FABI CARRION MD [facility] RAD ABD MASS [id number] 03/16/2017 11:58:00 03/16/2017 23:59:59 CLS Preadmit AIDEN HUTCHINSON [facility] RAD CAROTID ARTERY STENOSIS [id number] 03/11/2017 23:08:00 03/12/2017 02:06:00 DIS Emergency JO-ANN MARIE, WILIAN Valentin [facility] ER R ARM REDNESS AND SWELLING/"BLEEDING INTERNALLY" [id number] 01/04/2017 11:38:00 01/04/2017 23:59:59 CLS Outpatient AIDEN HUTCHINSON [facility] RAD CAROTID ARTERY STENOSIS [id number] 06/07/2016 14:20:00 06/07/2016 23:59:59 CLS Outpatient MAYA ALVARADO MD [facility] CARD Z01.810,[id number],CAROTID ARTERY STENOSIS [id number] 05/09/2016 14:55:00 05/09/2016 23:59:59 CLS Outpatient MAYA ALVARADO MD [facility] RAD CAROTID ARTERY STENOSIS [id number],[id number],[id number] 03/25/2016 13:45:00 03/25/2016 23:59:59 CLS Outpatient ZOFIA ABARCA APRN [facility] RAD PAIN UNDER R BREAST [id number] 03/17/2016 15:17:00 03/17/2016 23:59:59 CLS Outpatient FABI CARRION MD [facility] RAD CAROTID BRUITS [id number] 01/13/2016 09:33:00 01/13/2016 12:50:00 DIS Outpatient DEVONTE CONTRERAS MD [facility] SDC SCREENING [id number] 01/11/2016 06:05:00 01/11/2016 16:16:00 DIS Outpatient DEVONTE CONTRERAS MD [facility] PREOP SCREENING [id number] 12/22/2015 15:50:00 12/22/2015 23:59:59 CLS Outpatient IRAIS MARIE, NA Ocasio [facility] RAD LUMBAR STENOSIS,LUMBAGO [id number] 10/08/2015 14:20:00 10/08/2015 23:59:59 CLS Outpatient RUTHANN (ALEXIA) MILENA K [facility] RAD PAIN IN LIMB [id number] 09/16/2015 04:00:00 09/16/2015 23:59:59 CLS Outpatient VIRGEN WAN MD [facility] RAD LBP [id number] 08/03/2015 15:59:00 08/03/2015 23:59:59 CLS Outpatient VIRGEN WAN MD [facility] RAD LOW BACK PAIN [id number] 08/13/2014 14:22:00 08/13/2014 16:20:00 DIS Emergency BENNY TOLBERT MD [facility] ER COUGH/CONGESTION/SORE THROAT [id number] 10/05/2012 09:45:00 10/16/2012 12:50:00 DIS Outpatient SOBIA WHEELER MD [facility] WOUNDCARE POST SURGICAL ABCESS, LUMBAR SPINE [id number] 08/18/2012 09:35:00 08/27/2012 16:35:00 DIS Inpatient SOBIA WHEELER MD [facility] 4TH FEVER, CHILLS [id number] 05/04/2017 08:00:00 PEN Preadmit DEVONTE CONTRERAS MD [facility] SDC VENTRAL ABDOMINAL HERNIA [id number] 07/19/2012 13:00:00 Document Registration [id number] 07/13/2012 10:50:00 Document Registration [id number] 07/06/2012 12:00:00 Document Registration [id number] 06/13/2012 08:32:00 Document Registration [id number] 09/20/2010 07:21:00 Document Registration [id number] 09/16/2010 14:53:00 Document Registration [id number] 08/11/2010 12:31:00 Document Registration
== END 2017-05-04 14:15 | disposition home or self-care (01) ==
LOC: SDC 06:41
PROVIDERS: ATTEND Surgery
DX: K43.9 Ventral hernia without obstruction or gangrene (principal); I10 Essential (primary) hypertension; E78.5 Hyperlipidemia, unspecified; E11.43 Type 2 diabetes mellitus with diabetic autonomic (poly)neuropathy; F41.9 Anxiety disorder, unspecified; F32.9 Major depressive disorder, single episode, unspecified; M19.91 Primary osteoarthritis, unspecified site; M48.061 Spinal stenosis, lumbar region without neurogenic claudication; Z79.4 Long term (current) use of insulin; Z79.899 Other long term (current) drug therapy; Z87.891 Personal history of nicotine dependence
CPT/HCPCS: 36415; 82962; 85025; 87081; 94664

== ENCOUNTER → 2018-01-09 | Outpatient (CLI) | payer MEDICARE, OTHER ==
--- NOTE | 2018-01-09 14:16 | Diagnostic Imaging Report ---
PROCEDURE: US carotid duplex, bilateral. TECHNIQUE: Multiple real-time grayscale images were obtained over the carotid arteries in various projections, bilaterally. Additional duplex Doppler and color Doppler images were also obtained. INDICATION: Carotid artery stenosis. History of prior left-sided endarterectomy. Parameters based on the consensus panel Ignacio-Scale and Doppler ultrasound criteria published March 2003, Radiology, Volume 229. DOPPLER (peak systolic velocity M/S Right Left CCA .91 .48 ICA Proximal 1.45 1.17 ICA Mid 1.35 1.13 ICA Distal 1.01 1.15 RATIO 1.6 2.4 ECA 2.81 1.61 VERT 42. 85. FINDINGS: Color and grayscale images demonstrate moderate plaque-like formation of the right carotid bifurcation extending into the internal carotid artery. There is increased velocity of 145 cm/s with an ICA/CCA ratio of 1.6. The external carotid artery is patent. On the left, the left internal carotid artery is patent but demonstrates atheromatous changes proximally. The maximum velocity is approximately 117 cm/s. There is an elevated ICA/CCA ratio of 2.4. This appears largely attributed to diminished velocity in the left common carotid artery at 48 cm/s. There is suggestion of some turbulent flow within the internal carotid artery. The external carotid artery is patent. Vertebral arteries demonstrate antegrade direction of flow bilaterally. IMPRESSION: 1. Atherosclerotic changes about the right carotid bifurcation and proximal internal carotid artery. Findings are suggestive of less than 50% stenosis at this time. 2. Left carotid endarterectomy remains patent. There is abnormal velocity ratio. This appears largely attributed to diminished velocity within the left common carotid artery. Possibility of more proximal stenosis is not excluded. Definitive stenosis of the internal carotid artery does not appear to be suggested. 2. Either short-term followup repeat ultrasound imaging or alternative means of imaging such as CTA would be of additional benefit. Dictated by: Dictated on workstation # [id number]
== END ==
LOC: RAD 09:06
PROVIDERS: ATTEND Nurse Practitioner
DX: I65.23 Occlusion and stenosis of bilateral carotid arteries (principal); Z98.890 Other specified postprocedural states
CPT/HCPCS: 93880

== ENCOUNTER → 2018-01-25 | Outpatient (CLI) | payer MEDICARE, OTHER ==
[~2018-01-25] MED LIST changes: +CATHETER FLUSH 10 ML SYR IV PRN; +IOHEXOL 350 MG/ML 100 ML (OMNIPAQUE 350) VIAL IV ONE; +NS 250 ML (IVPB) BAG IV ONE; +RECEIVED CONTRAST (Hold Metformin) IV SCH
[2018-01-25 12:40] LABS: ALBUMIN 4.4 GM/DL (3.2-4.5); CALCIUM 9.5 MG/DL (8.5-10.1); CREATININE SERUM 1.18 MG/DL (0.60-1.30); PHOSPHORUS 2.4 MG/DL (2.3-4.7); POTASSIUM 4.6 MMOL/L (3.6-5.0)
--- NOTE | 2018-01-25 17:44 | Diagnostic Imaging Report ---
EXAMINATION: CTA of the neck with contrast. INDICATION: Carotid artery stenosis. TECHNIQUE: Contiguous axial sections were taken from the mid portion of the skull through the upper thorax following administration of intravenous contrast. Sagittal and coronal reconstructed images were also obtained. MIP images were obtained as well. FINDINGS: There are no prior CTA neck examinations available for comparison. The carotid Doppler exam of 01/09/2018, however, revealed atherosclerotic disease involving both carotid systems. By history, there has been carotid endarterectomy on the left. The ultrasound exam revealed that the left internal and common carotid arteries were patent but that the IC/CC ratio was elevated. On this exam, there does appear to be a focal high-grade (90% or greater) stenosis of the distal common carotid artery on the left immediately proximal to the bifurcation. There is also only a wisp of contrast extending into the proximal external carotid artery on the left, and I do suspect that there is an equally high-grade stenosis in this area. There is a considerable amount of atherosclerotic plaque about the carotid bifurcation on the right. There is a 50-60% stenosis of the origin of the internal carotid artery on the right and a similar degree of stenosis of the external carotid artery on the right. Both vertebral arteries were identified. The left vertebral artery is dominant. There is no mass or adenopathy involving the neck. The thyroid gland is partially obscured by streak artifact. There is no definite abnormality of the thyroid gland. The lung apices are clear. There is degenerative disc and bony disease at C4-5, C5-6, and C6-7. There is no acute bony abnormality noted. The intracranial contents where visualized are unremarkable. There are retention cysts in the left maxillary antrum. IMPRESSION: 1. There is a high-grade (greater than 90%) focal stenosis of the distal common carotid artery on the left immediately proximal to the carotid bifurcation. There is no evidence for a hemodynamically significant stenosis of the internal carotid artery on the left, but there is an equally high-grade stenosis at the origin of the external carotid artery on the left. 2. There is atherosclerotic disease on the right, and there is a 50-60% stenosis of the origins of the internal carotid artery and external carotid artery. 3. The vertebral arteries are patent and the left vertebral artery is dominant. 4. There is no acute abnormality of the neck. Dictated by: Dictated on workstation # [id number]
== END ==
LOC: RAD 11:46
PROVIDERS: ATTEND Nurse Practitioner
DX: I65.23 Occlusion and stenosis of bilateral carotid arteries (principal)
CPT/HCPCS: 36415; 70498; 80069

== ENCOUNTER → 2018-03-08 | Outpatient (CLI) | payer MEDICARE, OTHER ==
[~2018-03-08] MED LIST changes: -CATHETER FLUSH 10 ML SYR IV PRN; -IOHEXOL 350 MG/ML 100 ML (OMNIPAQUE 350) VIAL IV ONE; -NS 250 ML (IVPB) BAG IV ONE; -RECEIVED CONTRAST (Hold Metformin) IV SCH
[2018-03-08 13:30] LABS: BASOPHILS % (AUTO) 0 % (0-10); EOSINOPHILS # (AUTO) 0.2 10^3/uL (0.0-0.3); EOSINOPHILS % (AUTO) 2 % (0-10); HEMATOCRIT 46 % (40-54); HEMOGLOBIN 15.9 G/DL (13.3-17.7); LYMPHOCYTES # (AUTO) 1.4 X 10^3 (1.0-4.0); LYMPHOCYTES % (AUTO) 18 % (12-44); MEAN CORPUSCULAR HEMOGLOBIN 31 PG (25-34); MEAN CORPUSCULAR HGB CONC 34 G/DL (32-36); MEAN CORPUSCULAR VOLUME 91 FL (80-99); MEAN PLATELET VOLUME 9.6 FL (7.4-10.4); MONOCYTES # (AUTO) 0.5 X 10^3 (0.0-1.0); MONOCYTES % (AUTO) 7 % (0-12); NEUTROPHILS # (AUTO) 5.8 X 10^3 (1.8-7.8); NEUTROPHILS % (AUTO) 73 % (42-75); PLATELET COUNT 226 10^3/uL (130-400); RED CELL DISTRIBUTION WIDTH 13.3 % (10.0-14.5)
[2018-03-08 13:45] LABS: ALBUMIN 4.5 GM/DL (3.2-4.5); BILIRUBIN,TOTAL 0.8 MG/DL (0.1-1.0); CALCIUM 9.8 MG/DL (8.5-10.1); CREATININE SERUM 1.22 MG/DL (0.60-1.30); POTASSIUM 4.3 MMOL/L (3.6-5.0); TOTAL PROTEIN 7.4 GM/DL (6.4-8.2)
--- NOTE | 2018-03-08 14:21 | Diagnostic Imaging Report ---
INDICATION: Carotid artery stenosis. COMPARISON: Comparison made with prior examination from 06/07/2016. FINDINGS: The heart size, mediastinal configuration, and pulmonary vascularity are within normal limits. There is no pleural effusion, pneumothorax, or pneumonia. The osseous structures are unremarkable. IMPRESSION: No acute cardiopulmonary abnormality. Dictated by: Dictated on workstation # [id number]
[2018-03-08 15:08] LABS: BILIRUBIN,URINE NEGATIVE (NEGATIVE); CLARITY,URINE SLIGHTLY CLOUDY; COLOR,URINE YELLOW; GLUCOSE, URINE (UA) 2+ (NEGATIVE); KETONES,URINE NEGATIVE (NEGATIVE); LEUKOCYTE ESTERASE ,URINE NEGATIVE (NEGATIVE); NITRITE,URINE NEGATIVE (NEGATIVE); PH,URINE 6 (5-9); PROTEIN,URINE 1+ (NEGATIVE); UROBILINOGEN,URINE NORMAL (NORMAL)
[2018-03-08 15:29] LABS: BACTERIA,URINE NEGATIVE /HPF; WBC,URINE RARE /HPF
== END ==
LOC: CARD 12:49
PROVIDERS: ATTEND Thoracic Surgery (Cardiothoracic Vascular Surgery)
DX: Z01.810 Encounter for preprocedural cardiovascular examination (principal); Z01.811 Encounter for preprocedural respiratory examination; Z01.812 Encounter for preprocedural laboratory examination; I65.23 Occlusion and stenosis of bilateral carotid arteries
CPT/HCPCS: 36415; 71046; 80053; 81000; 85025; 93005

== ENCOUNTER → 2018-07-10 | Outpatient (CLI) | payer MEDICARE, OTHER ==
--- NOTE | 2018-07-10 18:16 | Diagnostic Imaging Report ---
INDICATION: Fall and back pain. TIME OF EXAM: 03:20 p.m. FINDINGS: Sacrococcygeal alignment appears to be normal. No definite fracture or subluxation is seen. Sacral arcuate lines are intact. SI joints are non-widened. Postop changes in the lumbar spine are seen. There is degenerative disc disease at L5-S1 with disc space narrowing and marginal spurring as well as vacuum disc phenomena. IMPRESSION: No acute bony abnormalities detected. Dictated by: Dictated on workstation # [id number]
--- NOTE | 2018-07-10 19:33 | Diagnostic Imaging Report ---
CLINICAL INDICATION: Patient status post fall on back. Patient has pain in low back and tailbone. EXAM: X-ray of the lumbar spine, three views. COMPARISON: X-ray of the lumbar spine dated 12/22/2015. FINDINGS: Again seen L3-L4 360 degree fusion with no hardware complications. There appears to be intervertebral bony bridging/fusion noted. There is also interbody disc spacer at the L4-L5 level with intervertebral bony bridging seen. There is xfpvoloy-au-uogfzd loss of intervertebral disc height at the L5-S1 level with hypertrophic spurs. There are interval vacuum disc changes seen. There are small anterior spurs seen throughout the rest of the lumbar spine. Sacroiliac joints show no significant abnormality. IMPRESSION: 1: Again seen 360 degree fusion at the L3-L4 level with no hardware complications. There is solid intervertebral bony bridging/fusion at the L3-L4 and L4-L5 levels. 2: Slight progression of L5-S1 degenerative disease. Dictated by: Dictated on workstation # [id number]
== END ==
LOC: RAD 15:04
PROVIDERS: ATTEND Nurse Practitioner
DX: M54.5 Low back pain (principal); M53.3 Sacrococcygeal disorders, not elsewhere classified; W19.XXXA Unspecified fall, initial encounter; Z98.1 Arthrodesis status
CPT/HCPCS: 72100; 72220

== ENCOUNTER → 2018-07-26 | Outpatient (CLI) | payer MEDICARE, OTHER ==
--- NOTE | 2018-07-26 13:58 | Diagnostic Imaging Report ---
CLINICAL INDICATION: Patient is status post fall in June 2018. Patient has low back pain and bilateral hip pain, right worse than left. EXAM: MRI of the lumbar spine performed without IV contrast. Sagittal T2, sagittal T1, sagittal STIR, and axial T2. COMPARISON: MRI of the lumbar spine dated 09/16/2015. FINDINGS: There are interval postop changes to the lumbar spine with L3-L4 anterior lumbar interbody fusion and L3-L4 posterior lumbar fusion. There is again seen intervertebral graft at the L4-L5 level with solid intervertebral bony bridging/fusion. There is removal of the previously seen L4-L5 fusion hardware. There appears to be at least some degree of intervertebral bony bridging/fusion at the L3-L4 level. L3 laminectomy is seen in the interim. Lumbar spine has normal alignment with no acute fracture or dislocation. There are multilevel vertebral body spurs and facet arthropathy. The visualized portions of the distal thoracic spinal cord, conus medullaris, and cauda equina nerve roots are unremarkable. The conus medullaris tip is seen at the L1-L2 intervertebral level. There is tortuosity of the cauda equina nerve roots near the region of the severe L2-L3 central canal stenosis. Besides the postop changes, there is no significant paraspinal soft tissue abnormality. Lumbar spine degenerative spurs and facet arthropathy are again seen. L1-L2: There is a stable mild diffuse disc bulge and zbrh-gx-tdtcxsnl bilateral facet arthropathy. There is no significant central canal narrowing. There is mild bilateral neural foramen narrowing which has progressed possibly from facet arthropathy. L2-L3: There is progression of diffuse disc bulge with posterior disc herniation and severe bilateral facet arthropathy/hypertrophy and ligamentum flavum buckling. These findings have progressed. There is severe central canal narrowing with complete effacement of the thecal sac. There is severe bilateral neural foramen narrowing which has progressed. L3-L4: There are interval postop changes with removal of the previously seen diffuse disc bulge and resolution of the previously seen severe central canal narrowing. There is decompression of the thecal sac with no significant central canal narrowing. There is no significant neural foramen narrowing which has improved compared to the prior study post discectomy. L4-L5: There is moderate bilateral facet arthropathy/fusion which has not significantly changed. There is no significant central spinal canal or neural foramen narrowing. L5-S1: There is increased size of a large anterior disc extrusion/herniation. There is no significant posterior disc bulge. There is moderate loss of intervertebral disc height which has progressed. There is stable moderate bilateral neural foramen narrowing and no significant central canal narrowing. There is mild bilateral facet arthropathy. IMPRESSION: 1: There is interval revision of lower lumbar postop changes. There is interval placement of L3-L4 360 degree fusion. There is interval removal of the previously seen L4-L5 posterior fusion hardware. There appears to be solid intervertebral bony bridging/fusion at the L3-L4 and L5-S1 levels. 2: There is progression of severe degenerative disc disease at the L2-L3 level with diffuse disc bulge, posterior disc herniation, and severe bilateral facet arthropathy/hypertrophy. There is progression of severe central canal narrowing and severe bilateral neural foramen narrowing. 3: There is interval resolution of previously seen severe degenerative disc disease and severe central canal narrowing at the L3-L4 level. Dictated by: Dictated on workstation # [id number]
--- NOTE | 2018-07-26 15:19 | Diagnostic Imaging Report ---
INDICATION: Right knee weakness. COMPARISON: None. FINDINGS: Three views of the right knee joint demonstrate no acute fracture or dislocation. No focal osseous lesions are seen. There are mild- to-moderate degenerative changes, greatest involving the medial tibiofemoral compartment where there is significant asymmetric joint space narrowing and medial osteophyte formations. No significant joint effusion is seen. The surrounding soft tissue structures are unremarkable. There are no radiopaque foreign bodies. IMPRESSION: 1. No acute fractures or dislocations of the right knee joint. 2. Pjip-ss-ftusakjk osteoarthritic changes. Dictated by: Dictated on workstation # [id number]
== END ==
LOC: RAD 12:13
PROVIDERS: ATTEND Nurse Practitioner Family
DX: M51.16 Intervertebral disc disorders with radiculopathy, lumbar region (principal); M48.061 Spinal stenosis, lumbar region without neurogenic claudication; M17.11 Unilateral primary osteoarthritis, right knee; W19.XXXA Unspecified fall, initial encounter; Z98.1 Arthrodesis status
CPT/HCPCS: 72148; 73562

== ENCOUNTER 2018-12-24 15:41 | Outpatient (RCR) | payer MEDICARE, OTHER | END 2019-01-15 09:01 | disposition home or self-care (01) | PROVIDERS: ATTEND Nurse Practitioner Family | DX: M62.81 Muscle weakness (generalized) (principal) ==

== ENCOUNTER → 2019-04-01 | Outpatient (CLI) | payer MEDICARE, OTHER ==
--- NOTE | 2019-04-01 10:44 | Diagnostic Imaging Report ---
PROCEDURE: MR imaging cervical spine without contrast. TECHNIQUE: Multiplanar, multisequence MR imaging of the cervical spine was performed without contrast. INDICATION: Cervical region pain and upper extremity weakness. FINDINGS: There is mild reversal of cervical lordosis. Vertebral body heights are maintained and there is no evidence of marrow edema to indicate fracture. AP dimension of spinal canal at the lower limits of normal diffusely likely related to short pedicles. There is mild disc bulging and endplate spurring at C2-C3 resulting in mild neural foraminal stenosis, greater on the right. At C3-C4, there is diffuse disc bulging and ligamentum flavum hypertrophy with AP dimension of spinal canal measuring 0.7 cm. There is moderate bilateral neural foraminal stenosis. At C4-C5 level, disc bulging and endplate spurring is associated with degenerative facet disease resulting in narrowing of the AP dimension of spinal canal to 0.8 cm and causing moderate to severe bilateral neural foraminal stenosis. At the C5-C6 level, disc bulging and degenerative facet arthropathy narrows the AP dimension of spinal canal to 0.9 cm and causes moderately severe neural foraminal stenosis. At C6-C7, there is leftward disc bulging and osteophytes resulting in moderate spinal stenosis and left lateral recess stenosis with moderately severe bilateral neural foraminal stenoses. 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 No abnormal spinal cord signal is seen to indicate myelomalacia. Dictated by: Dictated on workstation # [id number]
== END ==
LOC: RAD 09:54
PROVIDERS: ATTEND Nurse Practitioner Family
DX: M50.33 Other cervical disc degeneration, cervicothoracic region (principal); R26.81 Unsteadiness on feet; M62.81 Muscle weakness (generalized); M48.02 Spinal stenosis, cervical region
CPT/HCPCS: 72141

== ENCOUNTER → 2019-04-11 | Outpatient (CLI) | payer MEDICARE, OTHER ==
--- NOTE | 2019-04-11 16:21 | Diagnostic Imaging Report ---
INDICATION: Left-sided rib pain. COMPARISON: None. FINDINGS: Three views of the left ribs were obtained. There is no fracture, dislocation, or other acute bony abnormality identified. Visualized portions of the left lung are clear. The surrounding soft tissues appear unremarkable. No radiopaque foreign bodies are seen. IMPRESSION: No healing or displaced left-sided rib fractures. Dictated by: Dictated on workstation # [id number]
== END ==
LOC: RAD 15:42
PROVIDERS: ATTEND Pediatrics
DX: R07.81 Pleurodynia (principal)
CPT/HCPCS: 71100

== ENCOUNTER → 2019-06-28 | Outpatient (CLI) | payer MEDICARE, OTHER ==
[~2019-06-28] MED LIST changes: +GLIM4TAB5 PO; +SIMV10TA26 PO; -SIMV10TA3 PO; +SIMV20TA26 PO; -SIMV20TA3 PO
--- NOTE | 2019-06-28 14:38 | Diagnostic Imaging Report ---
EXAMINATION: Right shoulder MRI without contrast, 06/28/2019. TECHNIQUE: Multiplanar, multisequence non contrast-enhanced MRI of the right upper extremity was accomplished. INDICATION: Chronic right shoulder pain from heavy lifting. COMPARISON: Comparison made to previous MRI dated 08/11/2010. FINDINGS: Full-thickness tears of the supraspinatus and infraspinatus tendons noted with retraction to the level of the acromioclavicular joint. There is significant superior subluxation of the humeral head in relation to the glenoid. The subscapularis tendon is thinned and contains heterogeneous signal intensity with a partial deep articular-sided tear. A small full-thickness extension along its cranial-most fibers is not excluded. The long head of the biceps tendon is very poorly visualized. There is motion artifact, however, on the axial sequence. Distally within the bicipital groove, a portion of the tendon is seen but markedly thinned. More proximally, a tear is not excluded. The labrum is grossly unremarkable but poorly evaluated on this noncontrast examination. There is narrowing, spurring, and edema at the acromioclavicular joint. Fluid in the glenohumeral joint and throughout the subdeltoid-subacromial bursa is also seen. The visualized axilla is unremarkable. There is postoperative change, incompletely imaged, within the mid to proximal one-third of the humerus. There is a linear hypointensity on all sequences noted posteriorly along the course of the infraspinatus muscle. There is surrounding fluid, and this could represent portion of a partially retracted infraspinatus tendon. Surrounding fluid is noted. Muscle volume demonstrates marked atrophy of the supraspinatus and infraspinatus muscles. Visualized axilla is unremarkable. IMPRESSION: 1. Full-thickness tears of the supraspinatus and infraspinatus tendons as described above with a predominantly partial articular-sided tear of the subscapularis tendon. A full-thickness extension at the cranial-most fibers is not excluded. 2. Likely chronic tear or postoperative tenodesis of the biceps tendon. 3. Labrum not well evaluated without contrast but grossly intact. Other findings as discussed above. Dictated by: Dictated on workstation # [id number]
== END ==
LOC: RAD 12:22
PROVIDERS: ATTEND Orthopaedic Surgery
DX: S46.811A Strain of other muscles, fascia and tendons at shoulder and upper arm level, right arm, initial encounter (principal); M62.511 Muscle wasting and atrophy, not elsewhere classified, right shoulder
CPT/HCPCS: 73221

== ENCOUNTER → 2019-09-11 | Outpatient (CLI) | payer MEDICARE, OTHER ==
--- NOTE | 2019-09-11 14:02 | Diagnostic Imaging Report ---
PROCEDURE: CT lumbar spine without contrast. TECHNIQUE: Multiple contiguous axial images were obtained through the lumbar spine without the use of intravenous contrast. Sagittal and coronal reformations were then performed. Auto Exposure Controls were utilized during the CT exam to meet ALARA standards for radiation dose reduction. INDICATION: Low back pain and stiffness. Patient has had multiple lumbar spine surgeries. COMPARISON: Correlation is made with prior CT lumbar spine study from 10/08/2015. FINDINGS: Curvature and alignment of the lumbar spine is normal. Previously noted hardware at the L4 and L5 levels has been removed. There are now postsurgical changes of posterior instrumented fusion at the L2-L3 level with vertical stabilization rods and bipedicular screws. There are also postop changes of anterior lumbar interbody fusion at the L3-L4 level with anterior plate and screws present. Hardware appears to be intact. No fracture or loosening is identified. There appeared to be laminectomy changes at the L4-L5 level. Vertebral body heights are maintained. No acute bony abnormality is detected. Paraspinous tissues are unremarkable. The bony canal is patent. IMPRESSION: Postoperative changes in the lumbar spine, as described. No hardware fracture or loosening is identified. No acute bony abnormality is detected. Dictated by: Dictated on workstation # [id number]
== END ==
LOC: RAD 13:05
PROVIDERS: ATTEND Nurse Practitioner Family
DX: Z98.1 Arthrodesis status (principal)
CPT/HCPCS: 72131

== ENCOUNTER → 2019-09-11 | Outpatient (CLI) | payer MEDICARE, OTHER ==
--- NOTE | 2019-09-11 15:48 | Diagnostic Imaging Report ---
PROCEDURE: US carotid duplex, bilateral. TECHNIQUE: Multiple real-time grayscale images were obtained over the carotid arteries in various projections, bilaterally. Additional spectral analysis and color Doppler duplex images were also obtained. INDICATION: Carotid artery stenosis. FINDINGS: There is a moderate amount of calcified plaque in the right carotid bulb and bifurcation. There is some mild velocity elevation in the proximal right internal carotid artery reaching 157 cm/s. ICA to CCA ratio on the right is 2.1. On the left, there appears to be a carotid stent extending from the common carotid artery to the proximal left internal carotid artery. Velocities in the left common and internal carotid arteries are unremarkable. No stenosis is seen. Left vertebral artery is patent. Right vertebral artery was not visualized. IMPRESSION: 1. Left carotid stent. No stenosis is identified. 2. Moderate right-sided carotid plaque. There is some velocity elevation in the proximal right internal carotid artery consistent with approximately 50% diameter stenosis. Parameters based on the consensus panel Ignacio-Scale and Doppler ultrasound criteria published March 2003, Radiology, Volume 229. DOPPLER (peak systolic velocity M/S Right Left CCA .76 .54 ICA Proximal 1.57 .54 ICA Mid 1.10 .87 ICA Distal 1.26 .77 RATIO 2.05 1.59 ECA 3.53 .57 VERT NOT SEEN 0.67 Dictated by: Dictated on workstation # [id number]
== END ==
LOC: RAD 12:42
PROVIDERS: ATTEND Nurse Practitioner
DX: I65.23 Occlusion and stenosis of bilateral carotid arteries (principal)
CPT/HCPCS: 93880

== ENCOUNTER → 2020-02-27 | Outpatient (CLI) | payer MEDICARE, OTHER ==
--- NOTE | 2020-02-27 13:59 | Diagnostic Imaging Report ---
EXAM: Bilateral hands at 1:06 PM INDICATION: Arthritis, hand pain. 3 views of each hand were obtained. COMPARISON: There are no prior studies available for comparison. FINDINGS: There is no fracture, dislocation or acute bony abnormality evident. The osseous structures appear fairly well mineralized. There is moderate degenerative disease of the DIP joints of the 2nd digits bilaterally, particularly the left 2nd digit. There are only mild degenerative changes involving the phalanges otherwise. The metacarpophalangeal joint seem fairly well-maintained. There is also only mild degenerative disease at each triscaphe joint. However there does seem to be at least moderate degenerative disease of the radiocarpal joint on the right. There is only mild degenerative changes involving the radiocarpal joint on the left. The soft tissues are unremarkable. IMPRESSION: 1. There is no evidence for an acute bony abnormality. 2. There is degenerative disease present. The degenerative changes are most pronounced involving the DIP joints of the 2nd digit, particularly on the left. There is also at least moderate degenerative disease of the radiocarpal joint on the right. These findings are most likely secondary to osteoarthritis. Dictated by: Dictated on workstation # [id number]
== END ==
LOC: RAD 12:30
PROVIDERS: ATTEND Internal Medicine
DX: M19.041 Primary osteoarthritis, right hand (principal); M19.042 Primary osteoarthritis, left hand

== ENCOUNTER → 2020-07-15 | Outpatient (CLI) | payer MEDICARE, OTHER ==
[~2020-07-15] MED LIST changes: -LISI10TA2 PO; +LISI10TA25 PO
--- NOTE | 2020-07-15 14:14 | Diagnostic Imaging Report ---
PROCEDURE: US carotid duplex, bilateral. TECHNIQUE: Multiple real-time grayscale images were obtained over the carotid arteries in various projections, bilaterally. Additional spectral analysis and color Doppler duplex images were also obtained. INDICATION: Carotid artery disease with history of diabetes and hypertension. TECHNIQUE: Multiple real-time grayscale images were obtained over the carotid arteries in various projections bilaterally. Additional spectral analysis and color Doppler and Duplex images were also obtained. FINDINGS: Color images demonstrate scattered plaque formation. This is most pronounced at the level of the carotid bifurcations. Right Carotid System: Diffuse atherosclerotic plaque present. There is increased velocity in the internal carotid artery at the 182 cm/s with an elevated ICA/CCA ratio 2.2. Suggestion slightly greater than 50% narrowing. The external carotid artery also demonstrates rather significantly increased velocity to 61 cm/s consistent with at least [id number] narrowing. Left Carotid System: There is diffuse atherosclerotic plaque present. There is presence of a patent common carotid artery stent. Likely extends from the common carotid artery to the proximal left internal carotid artery. There is increased IC/CCA ratio of 2.4 on the left. However, there is overall generalized diminished velocities within the left common carotid arteries and internal carotid arteries. However, possibly approximately 50% narrowing not excluded. There is absence of any flow within the left external carotid artery. Vertebral arteries: There is no detectable flow within the right vertebral artery. Antegrade directional flow within the left vertebral artery. IMPRESSION: 1. Findings to suggest at least 50% slightly greater narrowing of the bilateral internal carotid arteries. 2. Findings consistent with at least mild/moderate narrowing at the origin the right external carotid artery. 3. Absence of detectable flow within the left external carotid artery concerning for occlusion. 4. The right vertebral artery cannot be visualized. May reflect markedly diminished and/or absent flow. 5. Given the overall findings, if further assessment desired, alternative imaging such as CTA would be recommended for followup assessment. Parameters based on the consensus panel Ignacio-Scale and Doppler ultrasound criteria published March 2003, Radiology, Volume 229. DOPPLER (peak systolic velocity M/S Right Left CCA .81 .45 ICA Proximal 1.40 1.1 ICA Mid 1.82 1.0 ICA Distal 1.35 1.04 RATIO 2.2 2.4 ECA 261 NA VERT NOT SEEN .62 Dictated by: Dictated on workstation # [id number]
== END ==
LOC: RAD 11:22
PROVIDERS: ATTEND Nurse Practitioner
DX: I65.23 Occlusion and stenosis of bilateral carotid arteries (principal)
CPT/HCPCS: 93880

== ENCOUNTER 2020-10-07 21:24 | Emergency (ER) | payer MEDICARE, OTHER ==
[~2020-10-07] VITALS: Ht 182.8 cm; Wt 90.7 kg
--- NOTE | 2020-10-07 22:28 | ED General ---
General Chief Complaint: Cough/Cold/Flu Symptoms Stated Complaint: "BRONCHITIS ATTACK", SOME TROUBLE BREATHING Nursing Triage Note: PATIENT STATES THAT HE BEGAN COUGHING ONE WEEK AGO. HE HAS AN APPOINTMEN TOMORROW WITH HIS PCP, BUT THIS EVENING THE COUGHING BECAME MORE SEVERE AND HE HAD A DIFFICULT TIME CATCHING HIS BREATHE BETWEEN COUGHING FITS. HE STATES THAT HE HAS COUGHED UP CREAMY WHITE SPUTUM. Nursing Sepsis Screen: No Definite Risk Source of Information: Patient Exam Limitations: No Limitations History of Present Illness Date Seen by Provider: Oct 07, 2020 Time Seen by Provider: 21:28 Initial Comments This is 80-year-old gentleman presents to the emergency room with cough that started about a week ago. He has an appointment with his primary care provider tomorrow but today the coughing became very severe and he was having difficulty catching his breath. He states he feels like he has bronchitis. There is no wheezing or fever. He has coughed up some white sputum. He has history of hypertension and diabetes treated with insulin. He has been double vaccinated for COVID-19. He denies any additional symptoms of Covid such as lost of taste or smell, headache, diarrhea, or shortness of breath. He does have slight sore throat. Allergies and Home Medications Allergies Coded Allergies: No Known Drug Allergies (Unverified , 08/18/12) Home Medications Aspirin 81 Mg Tablet.dr, 81 MG PO DAILY, (Reported) Azithromycin 250 Mg Tablet, 250 MG PO DAILY Prescribed by: WILIAN JACOBSON on 10/07/202300 Benzonatate 100 Mg Capsule, 200 MG PO TID PRN for COUGH Prescribed by: WILIAN JACOBSON on 10/07/202300 Diazepam 10 Mg Tablet, 10 MG PO BID, (Reported) Gabapentin 300 Mg Capsule, 300 MG PO TID, (Reported) Glimepiride 4 Mg Tablet, 4 MG PO DAILY PRN, (Reported) Hydrocodone Bit/Acetaminophen 1 Each Tablet, 1 EACH PO QID, (Reported) Insulin Glargine,Hum.rec.anlog 100 Unit/1 Ml Insuln.pen, 20 UNIT SQ DAILY, (Reported) Lisinopril 10 Mg Tablet, 10 MG PO DAILY, (Reported) Simvastatin 20 Mg Tablet, 20 MG PO DAILY, (Reported) Zolpidem Tartrate 5 Mg Tablet, 5 MG PO HS, (Reported) Patient Home Medication List Home Medication List Reviewed: Yes Review of Systems Review of Systems Constitutional: no symptoms reported; No fever EENTM: no symptoms reported Respiratory: see HPI Cardiovascular: no symptoms reported Gastrointestinal: no symptoms reported Genitourinary: no symptoms reported Musculoskeletal: no symptoms reported Skin: no symptoms reported Psychiatric/Neurological: No Symptoms Reported Hematologic/Lymphatic: No Symptoms Reported Immunological/Allergic: no symptoms reported Past Qbbzctw-Vrltdm-Iymtnw Hx Patient Social History Type Used: Cigarettes Former Smoker, Quit: May 01, 1984 Recent Infectious Disease Expo: No Recent Hopitalizations: No Immunizations Up To Date Tetanus Booster (TDap): Unknown Date of Pneumonia Vaccine: Jan 29, 2013 Date of Influenza Vaccine: Jan 30, 2017 Seasonal Allergies Seasonal Allergies: No Past Medical History Surgeries: Yes (RIGHT FOOT SX, ROTATOR CUFF, INGUNIAL HERNIA REPAIR, kidney stone) Appendectomy, Gallbladder, Tonsillectomy Respiratory: No Cardiac: Yes High Cholesterol, Hypertension Neurological: Yes Neuropathy Reproductive Disorders: No Sexually Transmitted Disease: No Genitourinary: Yes Kidney Stones Gastrointestinal: Yes Abdominal Hernia Musculoskeletal: Yes (LUMBAR STENOSIS) Degenerate Disk Disease, Arthritis, Gout Endocrine: Yes Diabetes, Insulin dep HEENT: No Loss of Vision: Bilateral Hearing Impairment: Denies Cancer: No Psychosocial: Yes Anxiety, Depression Integumentary: Yes (RIGHT ARM BETTY) Eczema, Recent Skin Changes, Psoriasis Blood Disorders: No Family Medical History No Pertinent Family Hx Physical Exam Vital Signs Vital Signs - First Documented 10/07/20 21:33 Temp 36.8 Pulse 85 Resp 20 B/P (MAP) 155/80 (105) Pulse Ox 97 O2 Delivery Room Air Capillary Refill : Less Than 3 Seconds Height, Weight, BMI Height: 6'0.00" Weight: 198lbs. 0.0oz. [id number]; 27.00 BMI Method:Stated General Appearance: No Apparent Distress, WD/WN HEENT: Normal ENT Inspection Neck: Normal Inspection Respiratory: Normal Breath Sounds, No Accessory Muscle Use, No Respiratory Distress, Crackles (Left base) Cardiovascular: Regular Rate, Rhythm, No Edema, No Murmur Extremity: Normal Inspection, No Pedal Edema Neurologic/Psychiatric: Alert, Oriented x3, No Motor/Sensory Deficits, Normal Mood/Affect, gaming host II-XII Norm as Tested Skin: Normal Color, Warm/Dry Progress/Results/Core Measures Suspected Sepsis Recent Fever Within 48 Hours: No Infection Criteria Present: Suspected New Infection New/Unexplained Altered Menta: No Sepsis Screen: No Definite Risk SIRS Temperature: Pulse: 85 Respiratory Rate: 20 Blood Pressure 155 /80 Mean: 105 Results/Orders Lab Results Laboratory Tests Test 10/07/20 21:33 Range/Units Influenza Type A (RT-PCR) Not Detected Not Detecte Influenza Type B (RT-PCR) Not Detected Not Detecte SARS-CoV-2 RNA (RT-PCR) Not Detected Not Detecte My Orders Orders - WILIAN BUSCH MD Covid 19 Inhouse Test (10/07/20 21:29) Influenza A And B By Pcr (10/07/20 21:29) Chest Pa/Lat (2 View) (10/07/20 21:57) Azithromycin Tablet (Zithromax Tablet) (10/07/20 23:00) Benzonatate Capsule (Tessalon Perles) (10/07/20 23:00) Medications Given in ED Current Medications Medications Dose Ordered Sig/Win Route Start Time Stop Time Status Last Admin Dose Admin Azithromycin 500 mg ONCE ONCE PO 10/07/20 23:00 10/07/20 23:01 DC 10/07/20 23:09 500 MG Benzonatate 200 mg ONCE ONCE PO 10/07/20 23:00 10/07/20 23:01 DC 10/07/20 23:09 200 MG Vital Signs/I&O 10/07/20 21:33 Temp 36.8 Pulse 85 Resp 20 B/P (MAP) 155/80 (105) Pulse Ox 97 O2 Delivery Room Air Capillary Refill : Less Than 3 Seconds Blood Pressure Mean: 105 Progress Note : Time: 22:29 Progress Note Influenza and Covid screening tests were negative. Two-view chest x-ray is pending. Departure Impression Primary Impression: Cough Additional Impression: Respiratory crackles at left lung base Disposition: HOME, SELF-CARE Condition: Improved Departure-Patient Inst. Decision time for Depature: 22:59 Referrals: FABI CARRION MD (PCP/Family) Primary Care Physician Patient Instructions: Community-Acquired Pneumonia in Adults, Cough, Adult ED Add. Discharge Instructions: Complete your antibiotics as prescribed. Drink plenty of clear liquids to stay well-hydrated. You may use the Tessalon Perles as prescribed for cough. Call with questions or concerns. Return to the ER if you have worsening symptoms. All discharge instructions reviewed with patient and/or family. Voiced understanding. Scripts Benzonatate (TESSALON PERLES) 100 Mg Capsule 200 MG PO TID PRN for COUGH, #20 CAP Prov: WILIAN BUSCH MD 10/07/20 Azithromycin (Azithromycin) 250 Mg Tablet 250 MG PO DAILY, #4 TAB 0 Refills Prov: WILIAN BUSCH MD 10/07/20 WILIAN BUSCH MD Oct 07, 2020 22:28
[2020-10-07] MEDS ORDERED: AZITHROMYCIN 250 MG TAB (ZITHROMAX) PO ONE (23:00)
[2020-10-07] MEDS ORDERED: BENZONATATE 100 MG (TESSALON) CAPSULE PO ONE (23:00)
[2020-10-07] MEDS ORDERED: BENZ100C18 PO ×2 (23:01→23:19)
[2020-10-07] MEDS ORDERED: AZIT250T12 PO ×2 (23:01→23:18)
[2020-10-07 23:35] VITALS: BP 158/70
--- NOTE | 2020-10-08 07:02 | Diagnostic Imaging Report ---
INDICATION: Shortness of breath COMPARISON: None FINDINGS: Frontal and lateral views of the chest demonstrate clear lungs bilaterally. Heart is normal. There is no pneumothorax. The osseous structures are normal. IMPRESSION: Negative chest Dictated by: Dictated on workstation # [id number]
== END 2020-10-07 23:35 | disposition home or self-care (01) ==
LOC: EDUNIT# 21:24 → ER 21:25
DX: R05 Cough (principal); R06.89 Other abnormalities of breathing; I10 Essential (primary) hypertension; E11.9 Type 2 diabetes mellitus without complications; E78.00 Pure hypercholesterolemia, unspecified; F41.9 Anxiety disorder, unspecified; Z87.891 Personal history of nicotine dependence; Z20.822 Contact with and (suspected) exposure to COVID-19; Z79.82 Long term (current) use of aspirin; Z79.4 Long term (current) use of insulin; Z79.899 Other long term (current) drug therapy
CPT/HCPCS: 71046; 87636

== ENCOUNTER → 2020-10-12 | Outpatient (CLI) | payer MEDICARE, OTHER ==
[~2020-10-12] MED LIST changes: +AZIT250T12 PO; +BENZ100C18 PO
--- NOTE | 2020-10-12 19:57 | Diagnostic Imaging Report ---
INDICATION: Follow-up pneumonia. Patient is feeling better but still is wheezing. COMPARISON STUDY: Chest from October 07. FINDINGS: Two views of the chest demonstrate the lungs to be clear. The heart, mediastinum and pulmonary vascularity are normal. There are no pleural effusions. Postoperative changes are present in the spine. IMPRESSION: Negative chest. Dictated by: Dictated on workstation # [id number]
== END ==
LOC: RAD 17:14
PROVIDERS: ATTEND Physician Assistant
DX: J18.9 Pneumonia, unspecified organism (principal)
CPT/HCPCS: 71046

== ENCOUNTER → 2022-08-22 | Outpatient (CLI) | payer MEDICARE, OTHER ==
--- NOTE | 2022-08-22 18:41 | Diagnostic Imaging Report ---
INDICATION: Fall with lumbar pain AP and lateral views of lumbar spine are obtained with comparison made to study of 07/10/2018 There has been apparent interval revision of lumbar fusion. There has been discectomy at the L2-L3, L3-L4 and L4-L5 levels with posterior fusion at L2-L3 and anterior fusion device at L3-L4. There has been worsening of disc space narrowing and marginal spurring at the L1-L2 level. There is no evidence of hardware fracture or other immediate complication. Advanced degenerative findings are progressed in the L4-L5 and L5-S1 levels. IMPRESSION: Worsening lumbar degenerative disc and facet disease without other acute abnormality or complication. Dictated on workstation # [id number]
--- NOTE | 2022-08-22 20:33 | Diagnostic Imaging Report ---
EXAMINATION: Radiographs of the sacrum and coccyx, 3 views. COMPARISON: July 10, 2018. HISTORY: 82-year-old male, fall 2-3 years ago. Persistent sacral pain. FINDINGS: The sacroiliac joints are normally aligned. There is no evidence of arthritis of either sacroiliac joint. There is severe disc height loss at L5-S1. There is disc spacer material at L4-L5. There is incompletely imaged spinal hardware spanning at least L3-L4. There is no radiographically apparent fracture of the sacrum or coccyx. Radiographs are not particularly sensitive for detailed detection of sacral or coccygeal fractures. IMPRESSION: 1. No radiographically apparent sacral fracture. 2. Severe disc degenerative changes at L5-S1. 3. Spinal hardware incompletely imaged. 4. Intact sacroiliac joints bilaterally. Dictated by: Dictated on workstation # [id number]
== END ==
LOC: RAD 14:28
PROVIDERS: ATTEND Internal Medicine
DX: M51.36 Other intervertebral disc degeneration, lumbar region (principal); M47.816 Spondylosis without myelopathy or radiculopathy, lumbar region; M51.37 Other intervertebral disc degeneration, lumbosacral region
CPT/HCPCS: 72100; 72220

== ENCOUNTER → 2022-09-08 | Outpatient (CLI) | payer MEDICARE, OTHER ==
--- NOTE | 2022-09-08 15:23 | Diagnostic Imaging Report ---
INDICATION: PAIN POST FALL COMPARISON: 10/12/2020 FINDINGS: Frontal and lateral views of the chest demonstrate normal heart size and pulmonary vascularity. Evaluation of the lung ortiz demonstrates small right basilar effusion. There is no large effusion on the left. No pneumothorax is seen on either side. Lungs are otherwise clear. The visualized osseous structures suggest acute nondisplaced lateral right 7th and 8th rib fractures.. IMPRESSION: 1. Small right basal effusion. 2. Findings suspicious for acute nondisplaced lateral right 7th and 8th rib fractures. Dictated by: Dictated on workstation # [id number]
--- NOTE | 2022-09-08 17:35 | Diagnostic Imaging Report ---
Patient History: Right-sided chest pain after fall. Rib pain. Technique: 3 views of the right ribs are obtained. Comparison: 09/08/2022. FINDINGS: No acute displaced right-sided rib fractures. No pleural effusion or pneumothorax. The right lung is clear. IMPRESSION: 1. No acute displaced right-sided rib fractures. Dictated by: Dictated on workstation # [id number]
== END ==
LOC: RAD 14:50
PROVIDERS: ATTEND Internal Medicine
DX: J90 Pleural effusion, not elsewhere classified (principal)
CPT/HCPCS: 71046; 71100